=== PATIENT | female | born 1935 | race Caucasian/White ===

== ENCOUNTER 2017-01-23 09:55 | Emergency (ER) | payer MEDICARE, OTHER ==
[2017-01-23 09:59] VITALS: TEMP 97.8; BMI 28.0
--- NOTE | 2017-01-23 10:26 | PDOC ---
History of Present Illness - General History Source: Patient, Old Records Exam Limitations: No Limitations - History of Present Illness Initial Comments: 01/23/17 10:34 The patient is an 81 year old female with past medical history of hypertension, hyperlipidemia, diabetes, hypothyroidism, anemia, and asthma who presents to the ED with complaints of abdominal and and intermittent diarrhea for the past two weeks. She denies treating her symptoms with any medications. When the patient called her PCP today, she was advised to go to the emergency room. She denies any recent fevers, chills, nausea or vomiting. She denies melena or hematochezia. She denies any chest pain or shortness of breath. She denies any urinary symptoms. PCP: Guy Aguilar <Isa Mason - Last Filed: 01/23/17 14:19> <Luzmaria Beltran - Last Filed: 01/23/17 16:36> - General Chief Complaint: Pain Stated Complaint: ABD PAIN Time Seen by Provider: 01/23/17 10:10 Past History <Isa Mason - Last Filed: 01/23/17 14:19> - Past Medical History Anemia: Yes Asthma: Yes Cardiac Disorders: Yes Diabetes: Yes HTN: Yes Hypercholesterolemia: Yes Suicide Attempt (Hx): No Thyroid Disease: Yes (hypo) - Surgical History Abdominal Surgery: Yes (TUBAL LIGATION) Cholecystectomy: Yes - Psycho/Social/Smoking Cessation Hx Anxiety: No Suicidal Ideation: No Smoking Status: No Smoking History: Never smoked Have you smoked in the past 12 months: No Number of Cigarettes Smoked Daily: 0 Information on smoking cessation initiated: No Hx Alcohol Use: No Drug/Substance Use Hx: No Substance Use Type: None <Luzmaria Beltran - Last Filed: 01/23/17 16:36> - Past Medical History Allergies/Adverse Reactions: Allergies Allergy/AdvReac Type Severity Reaction Status Date / Time No Known Allergies Allergy Verified 01/23/17 09:56 Home Medications: Ambulatory Orders Albuterol Sulfate Inhaler - [Ventolin HFA Inhaler -] 2 inh PO Q4H PRN #1 inh Amlodipine Besylate [Norvasc -] 2.5 mg PO DAILY 10/24/14 Aspirin [ASA -] 81 mg PO DAILY 10/24/14 Atorvastatin Ca [Lipitor] 20 mg PO HS 10/24/14 Diltiazem HCl [Diltiazem 24Hr ER] 360 mg PO DAILY 10/24/14 Levothyroxine [Synthroid -] 100 mcg PO DAILY 10/24/14 Losartan Potassium 100 mg PO DAILY 10/24/14 Metformin HCl [Glucophage -] 1,000 mg PO BID 10/24/14 Montelukast Na [Singulair -] 10 mg PO HS 10/24/14 Sertraline HCl [Zoloft] 25 mg PO DAILY 10/24/14 Zolpidem Tartrate [Ambien] 10 mg PO HS 10/24/14 Levofloxacin [Levaquin] 750 mg PO DAILY #7 tab 01/23/17 Metronidazole [Flagyl -] 500 mg PO TID #21 tablet 01/23/17 Review of Systems - Review of Systems Able to Perform ROS?: Yes Comments:: 01/23/17 10:35 GENERAL/CONSTITUTIONAL: No fever or chills. No weakness. HEAD, EYES, EARS, NOSE AND THROAT: No change in vision. No ear pain or discharge. No sore throat. CARDIOVASCULAR: No chest pain or shortness of breath. RESPIRATORY: No cough, wheezing, or hemoptysis. GASTROINTESTINAL: Present: abdominal pain, diarrhea No nausea, vomiting, constipation. GENITOURINARY: No dysuria, frequency, or change in urination. MUSCULOSKELETAL: No joint or muscle swelling or pain. No neck or back pain. SKIN: No rash NEUROLOGIC: No headache, vertigo, loss of consciousness, or change in strength/ sensation. ENDOCRINE: No increased thirst. No abnormal weight change. HEMATOLOGIC/LYMPHATIC: No anemia, easy bleeding, or history of blood clots. ALLERGIC/IMMUNOLOGIC: No hives or skin allergy. All Other Systems: Reviewed and Negative <Isa Mason - Last Filed: 01/23/17 14:19> *Physical Exam - Vital Signs Last Vital Signs Temp Pulse Resp BP Pulse Ox 97.8 F 88 18 148/64 100 01/23/17 09:56 01/23/17 09:56 01/23/17 09:56 01/23/17 09:56 01/23/17 09:56 - Physical Exam Comments: 01/23/17 10:36 <Isa Mason - Last Filed: 01/23/17 14:19> - Vital Signs Last Vital Signs Temp Pulse Resp BP Pulse Ox 97.8 F 88 18 148/64 100 01/23/17 09:56 01/23/17 09:56 01/23/17 09:56 01/23/17 09:56 01/23/17 09:56 - Physical Exam Comments: GENERAL: Awake, alert, and fully oriented, in no acute distress HEAD: No signs of trauma EYES: PERRLA, EOMI, sclera anicteric, conjunctiva clear ENT: Auricles normal inspection, hearing grossly normal, nares patent, oropharynx clear without exudates. Moist mucosa NECK: Normal ROM, supple, no lymphadenopathy, JVD, or masses LUNGS: Breath sounds equal, clear to auscultation bilaterally. No wheezes, and no crackles HEART: Regular rate and rhythm, normal S1 and S2, no murmurs, rubs or gallops ABDOMEN: Soft, tender to BLQ with guarding, normoactive bowel sounds. No rebound. No masses EXTREMITIES: Normal range of motion, no edema. No clubbing or cyanosis. No cords, erythema, or tenderness NEUROLOGICAL: Cranial nerves II through XII grossly intact. Normal speech, normal gait SKIN: Warm, Dry, normal turgor, no rashes or lesions noted. <Luzmaria Beltran - Last Filed: 01/23/17 16:36> ED Treatment Course - LABORATORY CBC & Chemistry Diagram: 01/23/17 10:33 01/23/17 10:33 - RADIOLOGY Radiograph Interpretation: 01/23/17 14:[address] as reviewed by Dr. Junior reports bowel wall thickening demonstrating colitis. <Isa Mason - Last Filed: 01/23/17 14:19> - LABORATORY CBC & Chemistry Diagram: 01/23/17 10:33 01/23/17 10:33 <Luzmaria Beltran - Last Filed: 01/23/17 16:36> Medical Decision Making - Medical Decision Making Patient is well-appearing, tolerating PO. Stable for DC home with outpatient treatment for colitis. <Luzmaria Beltran - Last Filed: 01/23/17 16:36> *DC/Admit/Observation/Transfer - Attestations Scribe Attestion: 01/23/17 10:37 Documentation prepared by Isa Mason, acting as auditor medical claims for Luzmaria Beltran MD. <Isa Mason - Last Filed: 01/23/17 14:19> - Discharge Dispostion Admit: No <Luzmaria Beltran - Last Filed: 01/23/17 16:36> Diagnosis at time of Disposition: Colitis - Discharge Dispostion Disposition: HOME Condition at time of disposition: Stable - Prescriptions Prescriptions: Metronidazole [Flagyl -] 500 mg PO TID #21 tablet Levofloxacin [Levaquin] 750 mg PO DAILY #7 tab - Patient Instructions Printed Discharge Instructions: DI for Colitis Print Language: LIBYAN
[2017-01-23] MEDS ORDERED: SODIUM CHLORIDE 1,000 ML IV STA (10:33)
[2017-01-23 11:09] LABS: BASOPHIL 0.6 % (0-2.0); EOSINOPHIL 4.2 % (0-4.5); MCH 26.9 pg (25.7-33.7); MCHC 33.3 g/dl (32.0-36.0); MEAN CELL VOLUME 80.9 fl (80-96); MEAN PLT VOLUME 7.1 fl (7.5-11.1); NEUTROPHILS 64.4 % (42.8-82.8); PLATELET COUNT 298 K/MM3 (134-434); WHITE BLOOD COUNT 6.6 K/mm3 (4.0-10.0)
[2017-01-23 11:36] LABS: ALBUMIN 3.2 g/dl (3.4-5.0); BILIRUBIN,TOTAL 0.2 mg/dL (0.2-1.0); CALCIUM 9.1 mg/dL (8.5-10.1); COCKROFT - GAULT 46.75
[2017-01-23 12:09] LABS: URINE APPEARANCE CLEAR; URINE BILIRUBIN NEGATIVE (NEGATIVE); URINE BLOOD NEGATIVE (NEGATIVE); URINE COLOR STRAW; URINE GLUCOSE (UA) NEGATIVE (NEGATIVE); URINE KETONE NEGATIVE (NEGATIVE); URINE LEUK ESTERASE TRACE (NEGATIVE); URINE NITRITE NEGATIVE (NEGATIVE); URINE PROTEIN NEGATIVE (NEGATIVE); URINE UROBILINOGEN NEGATIVE E.U./dl (0.2-1.0)
[2017-01-23 12:15] LABS: URINE HYALINE CAST 1 /lpf; URINE MUCUS RARE; URINE RBC <1 /hpf (0-3); URINE WBC 1 /hpf (3-5)
[2017-01-23 15:32] VITALS: BP 141/68; PULSE 64
== END 2017-01-23 14:30 | disposition home or self-care (01) ==
LOC: JER 09:55
PROC: 3E0337Z Introduction of Electrolytic and Water Balance Substance into Peripheral Vein, Percutaneous Approach (ICD-10-PCS; principal; 2017-01-23)
DX: K52.9 Noninfective gastroenteritis and colitis, unspecified (principal); I10 Essential (primary) hypertension; E11.9 Type 2 diabetes mellitus without complications; Z79.84 Long term (current) use of oral hypoglycemic drugs; E03.9 Hypothyroidism, unspecified; D64.9 Anemia, unspecified; J45.909 Unspecified asthma, uncomplicated
CPT/HCPCS: 36415; 74177-TC; 80053; 81003; 81015; 83690; 85025; 96360; 99283-25

== ENCOUNTER 2017-03-03 11:51 | Emergency (ER) | payer MEDICARE, OTHER ==
[2017-03-03 12:03] VITALS: TEMP 98.7; BMI 28.1
--- NOTE | 2017-03-03 12:25 | PDOC ---
History of Present Illness - General History Source: Patient Exam Limitations: No Limitations - History of Present Illness Initial Comments: 03/03/17 13:08 The patient is an 81 year old female with a significant past medical history of hypertension, hyperlipidemia, diabetes, and hypothyroidism, presenting to the Emergency Department with dizziness for two weeks. The patient reports that she has felt dizzy for two weeks, for which her doctor prescribed Meclizine with little improvement. She admits that she has previously experienced similar dizziness and was diagnosed with vertigo. She admits to a headache, nausea, and unsteady gait secondary to dizziness. She admits that turning to her right side exacerbates the dizziness. The patient denies vomiting, or diarrhea. Patient denies fall, or loss of consciousness. Patient denies double vision, or visual changes. Patient denies chest pain, palpitations, and shortness of breath. PCP: Dr. Guy Aguilar Past Medical Hx: depression, anemia, asthma Surgical Hx: hysterectomy, cholecystectomy <Veronica Cheo - Last Filed: 03/03/17 14:43> <Reji Hays - Last Filed: 03/03/17 14:56> - General Chief Complaint: Lightheaded Stated Complaint: HEADACHE Time Seen by Provider: 03/03/17 12:21 Past History <Veronica Choe - Last Filed: 03/03/17 14:43> - Past Medical History Anemia: Yes Asthma: Yes Cardiac Disorders: Yes Diabetes: Yes HTN: Yes Hypercholesterolemia: Yes Suicide Attempt (Hx): No Thyroid Disease: Yes (hypo) - Surgical History Abdominal Surgery: Yes (TUBAL LIGATION) Cholecystectomy: Yes - Psycho/Social/Smoking Cessation Hx Anxiety: No Suicidal Ideation: No Smoking Status: No Smoking History: Former smoker Have you smoked in the past 12 months: No Number of Cigarettes Smoked Daily: 0 Information on smoking cessation initiated: No Hx Alcohol Use: No Drug/Substance Use Hx: No Substance Use Type: None <Reji Hays - Last Filed: 03/03/17 14:56> - Past Medical History Allergies/Adverse Reactions: Allergies Allergy/AdvReac Type Severity Reaction Status Date / Time No Known Allergies Allergy Verified 03/03/17 12:00 Home Medications: Ambulatory Orders Amlodipine Besylate [Norvasc -] 5 mg PO DAILY 03/03/17 Atorvastatin Ca [Lipitor] 20 mg PO HS 03/03/17 Diltiazem Cd [Cardizem Cd -] 360 mg PO DAILY 03/03/17 Ferrous Sulfate [Feosol] 325 mg PO DAILY 03/03/17 Fluticasone Propionate [Flovent Diskus] 110 mcg IH DAILY 03/03/17 Levothyroxine [Synthroid -] 100 mcg PO DAILY 03/03/17 Loperamide HCl [Loperamide] 2 mg PO DAILY PRN 03/03/17 Meclizine HCl [Antivert -] 12.5 mg PO TID 03/03/17 Metformin HCl [Metformin HCl ER] 1,000 mg PO BID 03/03/17 Montelukast Na [Singulair -] 10 mg PO HS 03/03/17 Omeprazole 20 mg PO DAILY 03/03/17 Sertraline HCl [Zoloft -] 25 mg PO DAILY 03/03/17 Zolpidem Tartrate [Ambien] 10 mg PO HS 03/03/17 Review of Systems - Review of Systems Able to Perform ROS?: Yes Comments:: 03/03/17 13:08 GENERAL/CONSTITUTIONAL: + dizziness. No fever or chills. No weakness. HEAD, EYES, EARS, NOSE AND THROAT: No change in vision. No ear pain or discharge. No sore throat. CARDIOVASCULAR: No chest pain or shortness of breath. RESPIRATORY: No cough, wheezing, or hemoptysis. GASTROINTESTINAL: + nausea. No vomiting, diarrhea or constipation. GENITOURINARY: No dysuria, frequency, or change in urination. MUSCULOSKELETAL: No joint or muscle swelling or pain. No neck or back pain. SKIN: No rash NEUROLOGIC: + headache, + vertigo. No loss of consciousness, or change in strength/sensation. ENDOCRINE: No increased thirst. No abnormal weight change. HEMATOLOGIC/LYMPHATIC: No anemia, easy bleeding, or history of blood clots. ALLERGIC/IMMUNOLOGIC: No hives or skin allergy. <Veronica Choe - Last Filed: 03/03/17 14:43> *Physical Exam - Vital Signs Last Vital Signs Temp Pulse Resp BP Pulse Ox 98.7 F 76 17 126/53 95 03/03/17 12:00 03/03/17 12:00 03/03/17 12:00 03/03/17 12:00 03/03/17 12:00 - Physical Exam Comments: 03/03/17 13:09 GENERAL: Awake, alert, and fully oriented, in no acute distress HEAD: No signs of trauma EYES: PERRLA, EOMI, sclera anicteric, conjunctiva clear ENT: Auricles normal inspection, hearing grossly normal, nares patent, oropharynx clear without exudates. Moist mucosa NECK: Normal ROM, supple, no lymphadenopathy, JVD, or masses LUNGS: Breath sounds equal, clear to auscultation bilaterally. No wheezes, and no crackles HEART: Regular rate and rhythm, normal S1 and S2, no murmurs, rubs or gallops ABDOMEN: Soft, nontender, normoactive bowel sounds. No guarding, no rebound. No masses EXTREMITIES: Normal range of motion, no edema. No clubbing or cyanosis. No cords, erythema, or tenderness NEUROLOGICAL: Positive manuel hallpike when turned to the right. Positive horizontal nystagmus. Cranial nerves II through XII grossly intact. Normal speech SKIN: Warm, Dry, normal turgor, no rashes or lesions noted. <Veronica Choe - Last Filed: 03/03/17 14:43> - Vital Signs Last Vital Signs Temp Pulse Resp BP Pulse Ox 98.7 F 76 17 126/53 95 03/03/17 12:00 03/03/17 12:00 03/03/17 12:00 03/03/17 12:00 03/03/17 12:00 <Reji Hays - Last Filed: 03/03/17 14:56> Heart Score/ECG Review #1 ECG reviewed & interpreted by me at: 13:22 (EKG reviewed by Dr. Hays IMPRESSION: Right bundle branch block, Normal sinus rhythm. No change from previous.) <Veronica Choe - Last Filed: 03/03/17 14:43> ED Treatment Course - LABORATORY CBC & Chemistry Diagram: 03/03/17 12:54 03/03/17 12:54 - RADIOLOGY Radiograph Interpretation: 03/03/17 13:37 Chest XRay As reviewed by Dr. Nomi Cruz IMPRESSION: No evidence of active pulmonary disease. 03/03/17 14:[address] As reviewed by Dr. Nomi Cruz IMPRESSION: No evidence of acute intracranial hemorrhage, edema, midline shift, mass effect, or skull fracture. No CT evidence of acute territorial infarction. <Veronica Choe - Last Filed: 03/03/17 14:43> - LABORATORY CBC & Chemistry Diagram: 03/03/17 12:54 03/03/17 12:54 <Reji Hays - Last Filed: 03/03/17 14:56> *DC/Admit/Observation/Transfer - Attestations Scribe Attestion: 03/03/17 13:11 Documentation prepared by Veronica Choe, acting as medical secretary for Reji Hays DO. <Veronica Choe - Last Filed: 03/03/17 14:43> - Discharge Dispostion Admit: No - Attestations Physician Attestion: 03/03/17 12:22 <Reji Hays - Last Filed: 03/03/17 14:56> Diagnosis at time of Disposition: Benign paroxysmal positional vertigo Qualifiers: Laterality: unspecified laterality Qualified Code(s): H81.10 - Benign paroxysmal vertigo, unspecified ear - Discharge Dispostion Disposition: HOME Condition at time of disposition: Good - Referrals Referrals: STAFF,NOT ON [Primary Care Provider] - - Patient Instructions Printed Discharge Instructions: DI for Vertigo, DI for Benign Paroxysmal Positional Vertigo Additional Instructions: See your doctor - his office will call you with the day and time. Continue the Antivert. Return to us if worse or new symptoms occur.
[2017-03-03 13:22] LABS: BASOPHIL 0.7 % (0-2.0); EOSINOPHIL 0.1 % (0-4.5); MCH 27.1 pg (25.7-33.7); MCHC 33.3 g/dl (32.0-36.0); MEAN CELL VOLUME 81.5 fl (80-96); MEAN PLT VOLUME 7.4 fl (7.5-11.1); NEUTROPHILS 71.9 % (42.8-82.8); PH,URINE 5.5 (5.0-8.0); PLATELET COUNT 242 K/MM3 (134-434); RDW 15.9 % (11.6-15.6); URINE APPEARANCE CLEAR; URINE BILIRUBIN 1+ (NEGATIVE); URINE BLOOD NEGATIVE (NEGATIVE); URINE COLOR LT. YELLOW; URINE GLUCOSE (UA) NEGATIVE (NEGATIVE); URINE KETONE TRACE (NEGATIVE); URINE NITRITE NEGATIVE (NEGATIVE); URINE UROBILINOGEN 0.2 E.U/dl E.U./dl (0.2-1.0); WHITE BLOOD COUNT 6.4 K/mm3 (4.0-10.0)
[2017-03-03 13:26] LABS: URINE LEUK ESTERASE 1+ (NEGATIVE); URINE PROTEIN 1+ (NEGATIVE)
[2017-03-03 13:49] LABS: ALBUMIN 3.7 g/dl (3.4-5.0); ANION GAP 11 (8-16); CALCIUM 8.8 mg/dL (8.5-10.1); CO2 26 mmol/L (21-32); GLUCOSE,RANDOM 101 mg/dL (74-106); SGPT/ALT 23 U/L (12-78)
[2017-03-03 13:52] LABS: INR 1.05 (0.82-1.09); PROTHROMBIN TIME (PATIENT) 11.6 SEC (9.98-11.88)
[2017-03-03 13:54] LABS: ALK PHOS 132 U/L (45-117); BILIRUBIN,TOTAL 0.5 mg/dL (0.2-1.0); CREATININE 1.1 mg/dL (0.55-1.02); SGOT/AST 34 U/L (15-37); TOT PROT 7.6 g/dl (6.4-8.2); TROPONIN I < 0.02 ng/ml (0.00-0.05)
[2017-03-03 14:07] LABS: THYROID STIMULATING HORMONE 2.14 uIU/ml (0.358-3.74)
[2017-03-03 14:15] LABS: URINE BACTERIA RARE /hpf (NONE SEEN); URINE MUCUS FEW; URINE RBC 5 /hpf (0-3); URINE WBC 12 /hpf (3-5)
[2017-03-03 15:22] VITALS: BP 122/63; PULSE 89
--- NOTE | 2017-03-03 15:51 | EKG ---
Test Reason : Blood Pressure : / mmHG Vent. Rate : 072 BPM Atrial Rate : 072 BPM P-R Int : 196 ms QRS Dur : 122 ms QT Int : 388 ms P-R-T Axes : -53 084 008 degrees QTc Int : 424 ms UNUSUAL P AXIS, POSSIBLE ECTOPIC ATRIAL RHYTHM RIGHT BUNDLE BRANCH BLOCK ABNORMAL ECG WHEN COMPARED WITH ECG OF 04-OCT-2015 13:12, ECTOPIC ATRIAL RHYTHM HAS REPLACED SINUS RHYTHM Confirmed by ELISEO MUSE, THUY ([id number]) on 03/03/2017 3:50:58 PM Referred By: Confirmed By:THUY GOMES MD
== END 2017-03-03 15:22 | disposition home or self-care (01) ==
LOC: JER 11:51
DX: H81.10 Benign paroxysmal vertigo, unspecified ear (principal); I10 Essential (primary) hypertension; E11.9 Type 2 diabetes mellitus without complications; E78.00 Pure hypercholesterolemia, unspecified; E03.9 Hypothyroidism, unspecified; Z79.84 Long term (current) use of oral hypoglycemic drugs
CPT/HCPCS: 36415; 70450-TC; 71010-TC; 80053; 81003; 81015; 82550; 83880; 84443; 84484; 85025; 85610; 87086; 93005; 93010; 99284-25

== ENCOUNTER 2017-05-15 12:49 | Emergency (ER) | payer MEDICARE, OTHER ==
[2017-05-15 12:57] VITALS: TEMP 98.3; BMI 27.8
[2017-05-15] MEDS ORDERED: PANTOPRAZOLE SODIUM 40 MG in SODIUM CHLORIDE 100 ML IVPB ONE (14:20)
[2017-05-15] MEDS ORDERED: SODIUM CHLORIDE 1,000 ML IV STA ×2 (14:20→15:48)
[2017-05-15] MEDS ORDERED: ONDANSETRON 4 MG/2 ML VIAL IVPUSH ONE (14:20)
[2017-05-15] MEDS ORDERED: PANTOPRAZOLE SODIUM 100 ML IVPB ONE (14:25)
[2017-05-15] MEDS ORDERED: ONDANSETRON 4 MG/2 ML VIAL ONE (14:25)
[2017-05-15 14:59] LABS: BASOPHIL 0.5 % (0-2.0); EOSINOPHIL 0.3 % (0-4.5); MCH 27.2 pg (25.7-33.7); MCHC 33.1 g/dl (32.0-36.0); MEAN PLT VOLUME 7.5 fl (7.5-11.1); NEUTROPHILS 88.3 % (42.8-82.8); PLATELET COUNT 325 K/MM3 (134-434); RDW 15.2 % (11.6-15.6); WHITE BLOOD COUNT 9.7 K/mm3 (4.0-10.0)
[2017-05-15 15:24] LABS: ALBUMIN 3.8 g/dl (3.4-5.0); ANION GAP 11 (8-16); BILIRUBIN,TOTAL 0.5 mg/dL (0.2-1.0); CALCIUM 9.6 mg/dL (8.5-10.1); CO2 27 mmol/L (21-32); CREATININE 0.9 mg/dL (0.55-1.02); GLUCOSE,RANDOM 135 mg/dL (74-106); MAGNESIUM 1.3 mg/dL (1.8-2.4); SGOT/AST 22 U/L (15-37); SGPT/ALT 25 U/L (12-78); TOT PROT 7.8 g/dl (6.4-8.2)
[2017-05-15 15:27] LABS: ALK PHOS 155 U/L (45-117); CPK 142 IU/L (26-192); TROPONIN I < 0.02 ng/ml (0.00-0.05)
[2017-05-15] MEDS ORDERED: MAGNESIUM SULF 50% (8.12 MEQ/2 ML-1 GM VIAL) IVPB ONE (15:38)
[2017-05-15 15:41] LABS: URINE APPEARANCE CLEAR; URINE BILIRUBIN NEGATIVE (NEGATIVE); URINE BLOOD NEGATIVE (NEGATIVE); URINE COLOR LTYELLOW; URINE GLUCOSE (UA) NEGATIVE (NEGATIVE); URINE KETONE NEGATIVE (NEGATIVE); URINE LEUK ESTERASE NEGATIVE (NEGATIVE); URINE NITRITE NEGATIVE (NEGATIVE); URINE UROBILINOGEN NEGATIVE mg/dL (0.2-1.0)
[2017-05-15 15:44] LABS: URINE PROTEIN 1+ (NEGATIVE)
--- NOTE | 2017-05-15 15:44 | PDOC ---
History of Present Illness - General Chief Complaint: Lightheaded Stated Complaint: NAUSEA/VOMITING/vertigo Time Seen by Provider: 05/15/17 13:07 History Source: Patient Exam Limitations: No Limitations - History of Present Illness Travel History: No Initial Comments: 05/15/17 15:41 81-year-old female presents with nausea and vomiting that began this morning after taking a meclizine pill upon awakening due to dizziness for her vertigo. Patient states has vomited approximately 4 times and now is having epigastric pain without fever, chills or headache. Patient does complain of generalized fatigue and mild dizziness. Patient denies headache, visual changes, or photosensitivity. Patient states no recent change in medications recent travel, recent illness. Timing/Duration: reports: intermittent Quality: reports: mild, cramping Abdominal Pain Onset Location: reports: epigastric Pain Radiation: reports: no radiation Activities at Onset: reports: none Aggravating Factors: improves with: None Alleviating Factors: improves with: None Past History - Travel Traveled outside of the country in the last 30 days: No Close contact w/someone who was outside of country & ill: No - Past Medical History Allergies/Adverse Reactions: Allergies Allergy/AdvReac Type Severity Reaction Status Date / Time No Known Allergies Allergy Verified 05/15/17 12:53 Home Medications: Ambulatory Orders Amlodipine Besylate [Norvasc -] 5 mg PO DAILY 03/03/17 Atorvastatin Ca [Lipitor] 20 mg PO HS 03/03/17 Diltiazem Cd [Cardizem Cd -] 360 mg PO DAILY 03/03/17 Ferrous Sulfate [Feosol] 325 mg PO DAILY 03/03/17 Fluticasone Propionate [Flovent Diskus] 110 mcg IH DAILY 03/03/17 Levothyroxine [Synthroid -] 100 mcg PO DAILY 03/03/17 Loperamide HCl [Loperamide] 2 mg PO DAILY PRN 03/03/17 Meclizine HCl [Antivert -] 12.5 mg PO TID 03/03/17 Metformin HCl [Metformin HCl ER] 1,000 mg PO BID 03/03/17 Montelukast Na [Singulair -] 10 mg PO HS 03/03/17 Omeprazole 20 mg PO DAILY 03/03/17 Sertraline HCl [Zoloft -] 25 mg PO DAILY 03/03/17 Zolpidem Tartrate [Ambien] 10 mg PO HS 03/03/17 Anemia: Yes Asthma: Yes Cardiac Disorders: Yes Diabetes: Yes HTN: Yes Hypercholesterolemia: Yes Suicide Attempt (Hx): No Thyroid Disease: Yes (hypo) Other medical history: vertigo - Surgical History Abdominal Surgery: Yes (TUBAL LIGATION) Cholecystectomy: Yes - Psycho/Social/Smoking Cessation Hx Anxiety: No Suicidal Ideation: No Smoking Status: No Smoking History: Never smoked Have you smoked in the past 12 months: No Number of Cigarettes Smoked Daily: 0 Information on smoking cessation initiated: No Hx Alcohol Use: No Drug/Substance Use Hx: No Substance Use Type: None Patient Lives Alone: No Review of Systems - Review of Systems Able to Perform ROS?: Yes Constitutional: Yes: Weakness HEENTM: No: Symptoms Reported Respiratory: No: Symptoms reported Cardiac (ROS): Yes: Lightheadedness ABD/GI: Yes: Nausea, Vomiting, Abdominal cramping : No: Symptoms Reported Musculoskeletal: No: Symptoms Reported Integumentary: No: Symptoms Reported Neurological: No: Symptoms reported Endocrine: No: Symptoms Reported *Physical Exam - Vital Signs Last Vital Signs Temp Pulse Resp BP Pulse Ox 98.3 F 104 H 18 178/69 100 05/15/17 12:54 05/15/17 12:54 05/15/17 12:54 05/15/17 12:54 05/15/17 12:54 - Physical Exam General Appearance: Yes: Nourished, Appropriately Dressed. No: Apparent Distress HEENT: positive: TMs Normal, Pharynx Normal. negative: Pale Conjunctivae Neck: positive: Supple Respiratory/Chest: positive: Lungs Clear, Normal Breath Sounds. negative: Respiratory Distress, Accessory Muscle Use Cardiovascular: positive: Regular Rhythm, Regular Rate. negative: Murmur Gastrointestinal/Abdominal: positive: Soft, Tenderness (epigastric) Musculoskeletal: negative: CVA Tenderness Extremity: positive: Normal Capillary Refill. negative: Pedal Edema Integumentary: positive: Normal Color, Warm, Moist Neurologic: positive: Normal Mood/Affect, Motor Strength 5/5 (ambulatory) Heart Score/ECG Review - History History: Slightly suspicious - Electrocardiogram EKG: Normal - Age Age: >/= 65 - Risk Factors Risk Factors Heart Score: Yes Hx Hypercholesterolemia, Yes Hx Hypertension, Yes Hx Diabetes Based on the list above the patient has:: >/=3 risk factors or Hx atherosclerotic disease - Troponin Troponin: </= normal limit - Score Heart Score - Total: 4 - ECG Intrepretation Rhythm: Regular Rhythm (normal sinus rhythm with first-degree AV block rate 72. No ST depression or elevation) ED Treatment Course - LABORATORY CBC & Chemistry Diagram: 05/15/17 14:40 05/15/17 17:20 - ADDITIONAL ORDERS Additional order review: Laboratory Results 05/15/17 14:40 Sodium 138 Potassium 5.6 H D Chloride 100 Carbon Dioxide 27 Anion Gap 11 BUN 19 H Creatinine 0.9 Creat Clearance w eGFR 59.94 Random Glucose 135 H D Calcium 9.6 Magnesium 1.3 L Total Bilirubin 0.5 AST 22 D ALT 25 Alkaline Phosphatase 155 H Creatine Kinase 142 Troponin I < 0.02 Total Protein 7.8 Albumin 3.8 Lipase 94 05/15/17 14:40 RBC 4.80 MCV 82.0 MCHC 33.1 RDW 15.2 MPV 7.5 Neutrophils % 88.3 H D Lymphocytes % 7.7 L D Monocytes % 3.2 L Eosinophils % 0.3 D Basophils % 0.5 - RADIOLOGY Radiology Studies Ordered: Category Date Time Status CHEST X-RAY PORTABLE* [RAD] Stat Radiology 05/15/17 14:20 Completed - Medications Given in the ED: ED Medications Discontinued Medications Generic Name Dose Route Start Last Admin Trade Name Freq PRN Reason Stop Dose Admin Pantoprazole Sodium 40 mg/ 100 mls @ 200 mls/hr 05/15/17 14:20 05/15/17 14:37 Sodium Chloride IVPB 05/15/17 14:49 200 mls/hr ONCE ONE Administration Sodium Chloride 1,000 mls @ 1,000 mls/hr 05/15/17 14:20 05/15/17 14:37 Normal Saline - IV 05/15/17 15:19 1,000 mls/hr ASDIR STA Administration Ondansetron HCl 4 mg 05/15/17 14:20 05/15/17 14:37 Zofran Injection IVPUSH 05/15/17 14:21 4 mg ONCE ONE Administration Medical Decision Making - Medical Decision Making 05/15/17 15:46 Patient with episodic nausea and vomiting associated with epigastric pain. Patient states symptoms began after taking this morning. Integument epigastric tenderness along with noted in the plastic bag. Patient concerning for gastritis versus cholecystitis versus UTI versus ACS patient ordered for labs including EKG chest x-ray, Zofran, IV fluids and Protonix. 05/15/17 16:52 Laboratory Tests 05/15/17 05/15/17 05/15/17 14:40 14:40 15:30 WBC 9.7 D Hgb 13.0 Hct 39.4 Plt Count 325 D Neutrophils % 88.3 H D Sodium 138 Potassium 5.6 H D Chloride 100 Carbon Dioxide 27 Anion Gap 11 BUN 19 H Random Glucose 135 H D Magnesium 1.3 L Alkaline Phosphatase 155 H Troponin I < 0.02 Urine Protein 1+ H Urine Urobilinogen Negative Urine WBC 1 05/15/17 17:05 Patient ordered for 2 g of magnesium. Will also ordered meclizine secondary to dizziness. Patient will have repeat BMP and magnesium Then will decide disposition. 05/15/17 18:29 Laboratory Tests 05/15/17 17:20 Sodium 137 Potassium 4.7 Magnesium 2.3 D Patient states feeling much better. Patient be recommended to increase her meclizine to 25 mg 3 times a day. *DC/Admit/Observation/Transfer Diagnosis at time of Disposition: Vertigo, Hypomagnesemia - Discharge Dispostion Disposition: HOME Condition at time of disposition: Improved - Referrals Referrals: STAFF,NOT ON [Primary Care Provider] - - Patient Instructions Printed Discharge Instructions: DI for Vertigo Additional Instructions: You may take 25 mg of meclizine 3 times a day as needed for dizziness. Please eat small frequent meals throughout the day drinking plenty of fluids. If symptoms return please go to the nearest emergency room . otherwise follow-up with your primary care physician and/or neurologist.
[2017-05-15 15:46] LABS: URINE MUCUS RARE; URINE RBC 1 /hpf (0-3); URINE WBC 1 /hpf (3-5)
[2017-05-15] MEDS ORDERED: MAGNESIUM SULF 50% (8.12 MEQ/2 ML-1 GM VIAL) ONE (15:50)
[2017-05-15] MEDS ORDERED: MECLIZINE HCL 25 MG TABLET (FP) PO ONE (17:03)
[2017-05-15] MEDS ORDERED: MECLIZINE HCL 25 MG TABLET (FP) ONE (17:20)
[2017-05-15 18:02] LABS: ANION GAP 5 (8-16); CALCIUM 8.7 mg/dL (8.5-10.1); CO2 28 mmol/L (21-32); CREATININE 0.7 mg/dL (0.55-1.02); GLUCOSE,RANDOM 113 mg/dL (74-106); MAGNESIUM 2.3 mg/dL (1.8-2.4)
[2017-05-15 19:19] VITALS: BP 150/72; PULSE 78
--- NOTE | 2017-05-16 13:57 | EKG ---
Test Reason : Blood Pressure : / mmHG Vent. Rate : 072 BPM Atrial Rate : 072 BPM P-R Int : 234 ms QRS Dur : 124 ms QT Int : 406 ms P-R-T Axes : 038 085 030 degrees QTc Int : 444 ms SINUS RHYTHM WITH 1ST DEGREE A-V BLOCK RIGHT BUNDLE BRANCH BLOCK ABNORMAL ECG WHEN COMPARED WITH ECG OF 03-MAR-2017 13:13, SINUS RHYTHM HAS REPLACED ECTOPIC ATRIAL RHYTHM Confirmed by CHRIS MUSE, ANGELITO ([id number]) on 05/16/2017 1:57:26 PM Referred By: Confirmed By:ANGELITO PEREZ MD
== END 2017-05-15 19:18 | disposition home or self-care (01) ==
LOC: JER 12:49
PROC: 3E033GC Introduction of Other Therapeutic Substance into Peripheral Vein, Percutaneous Approach (ICD-10-PCS; principal; 2017-05-15)
PROC: 3E033GC Introduction of Other Therapeutic Substance into Peripheral Vein, Percutaneous Approach (ICD-10-PCS; 2017-05-15)
DX: E83.42 Hypomagnesemia (principal); R42 Dizziness and giddiness; I10 Essential (primary) hypertension; E11.9 Type 2 diabetes mellitus without complications; Z79.84 Long term (current) use of oral hypoglycemic drugs; E78.00 Pure hypercholesterolemia, unspecified; J45.909 Unspecified asthma, uncomplicated; E03.9 Hypothyroidism, unspecified
CPT/HCPCS: 36415; 71010-TC; 80048; 80053; 81003; 81015; 83690; 83735; 84484; 85025; 93005; 93010; 96365; 96375; 99285-25

== ENCOUNTER 2017-09-15 09:42 | Emergency (ER) | payer MEDICARE, OTHER ==
[2017-09-15 09:55] VITALS: BP 146/65; PULSE 64; TEMP 97.7; BMI 28.7
--- NOTE | 2017-09-15 10:39 | PDOC ---
History of Present Illness - General Chief Complaint: Pain Stated Complaint: PAIN Time Seen by Provider: 09/15/17 10:22 History Source: Patient, Family Exam Limitations: No Limitations - History of Present Illness Initial Comments: 09/15/17 10:36 Son here With mother as patient with complaints of low back pain and radiating pain to left buttock and down left leg. Pain has been intermittent for some time however has become much worse over the past [address] aguilar, her PMD who called in a prescription for tramadol and Naprosyn 500 mg. Patient has not taken Naprosyn but has used tramadol with minimal resolved. Denies numbness or tingling to foot, denies any problems with bowel or bladder. Denies fever. Denies any recent heavy lifting or strenuous activity although suffers from arthritis. Has a handicap daughter that is full care that she his primary care provider for which includes heavy lifting Occurred: reports: other Severity: reports: mild, moderate Pain Location: reports: back, pelvis Modifying Factors: improves with: None Associated Symptoms (Fall): denies symptoms Past History - Travel Traveled outside of the country in the last 30 days: No Close contact w/someone who was outside of country & ill: No - Past Medical History Allergies/Adverse Reactions: Allergies Allergy/AdvReac Type Severity Reaction Status Date / Time No Known Allergies Allergy Verified 09/15/17 09:52 Home Medications: Ambulatory Orders Amlodipine Besylate [Norvasc -] 5 mg PO DAILY 03/03/17 Atorvastatin Ca [Lipitor] 20 mg PO HS 03/03/17 Diltiazem Cd [Cardizem Cd -] 360 mg PO DAILY 03/03/17 Ferrous Sulfate [Feosol] 325 mg PO DAILY 03/03/17 Fluticasone Propionate [Flovent Diskus] 110 mcg IH DAILY 03/03/17 Levothyroxine [Synthroid -] 100 mcg PO DAILY 03/03/17 Loperamide HCl [Loperamide] 2 mg PO DAILY PRN 03/03/17 Metformin HCl [Metformin HCl ER] 1,000 mg PO BID 03/03/17 Montelukast Na [Singulair -] 10 mg PO HS 03/03/17 Omeprazole 20 mg PO DAILY 03/03/17 Sertraline HCl [Zoloft -] 25 mg PO DAILY 07/06/17 Zolpidem Tartrate [Ambien] 10 mg PO HS 03/03/17 Meclizine HCl [Antivert -] 25 mg PO TID PRN #21 tablet 05/15/17 Cyclobenzaprine HCl [Flexeril 10 mg] 10 mg PO BID PRN #14 tablet 09/15/17 Anemia: Yes Asthma: Yes Cardiac Disorders: Yes COPD: No Diabetes: Yes HTN: Yes Hypercholesterolemia: Yes Thyroid Disease: Yes (hypo) - Surgical History Abdominal Surgery: Yes (TUBAL LIGATION) Cholecystectomy: Yes - Suicide/Smoking/Psychosocial Hx Smoking Status: No Smoking History: Former smoker Have you smoked in the past 12 months: No Number of Cigarettes Smoked Daily: 0 Information on smoking cessation initiated: No Hx Alcohol Use: No Drug/Substance Use Hx: No Substance Use Type: None Review of Systems - Review of Systems Able to Perform ROS?: Yes Is the patient limited Ecuadorean proficient: Yes Constitutional: Yes: Symptoms Reported, See HPI, Malaise. No: Chills, Fever HEENTM: Yes: See HPI. No: Symptoms Reported, Nose Congestion Respiratory: Yes: See HPI. No: Symptoms reported, Cough, Shortness of Breath Cardiac (ROS): Yes: See HPI. No: Symptoms Reported ABD/GI: Yes: See HPI. No: Symptoms Reported Musculoskeletal: Yes: Symptoms Reported, See HPI, Back Pain, Muscle Pain. No: Muscle Weakness Integumentary: Yes: See HPI. No: Symptoms Reported, Bruising Neurological: Yes: See HPI. No: Symptoms reported, Headache, Numbness, Paresthesia, Weakness All Other Systems: Reviewed and Negative *Physical Exam - Vital Signs Last Vital Signs Temp Pulse Resp BP Pulse Ox 97.7 F 64 16 146/65 98 09/15/17 09:52 09/15/17 09:52 09/15/17 09:52 09/15/17 09:52 09/15/17 09:52 - Physical Exam General Appearance: Yes: Nourished, Appropriately Dressed, Apparent Distress, Mild Distress HEENT: positive: GEM, Normal ENT Inspection, TMs Normal, Pharynx Normal Neck: positive: Supple. negative: Tender Respiratory/Chest: positive: Lungs Clear, Normal Breath Sounds Gastrointestinal/Abdominal: positive: Soft. negative: Tender Musculoskeletal: positive: Normal Inspection (with mildly limited range of motion secondary to low back pain. Has some tense tight musculature bilateral paravertebral spinous muscles on the lumbar area without true palpable spasm however point tenderness with reproduce pain to deep palpation. Hip has full range of motion with negative pain to pelvis. Is ambulatory with minimal unsteadiness or limp. Neurovascular intact to foot.) Extremity: positive: Normal Capillary Refill, Normal Inspection, Normal Range of Motion Integumentary: positive: Normal Color, Dry. negative: Rash Neurologic: positive: sink maker II-XII NML intact, Fully Oriented, Alert, Normal Mood/ Affect, Normal Response, Motor Strength 5/5 Progress Note - Progress Note Progress Note: Low back strain, no clinical evidence of any internal pathology . Will use NSAIDs and cyclobenzaprine to help resolve some mild spasm and encourage patient to avoid continued heavy lifting and consider help for his disabled daughter to avoid any further low back injuries. We'll refer to Koby O for further evaluation and treatment as necessary *DC/Admit/Observation/Transfer Diagnosis at time of Disposition: Low back strain Qualifiers: Encounter type: initial encounter Qualified Code(s): S39.012A - Strain of muscle, fascia and tendon of lower back, initial encounter - Discharge Dispostion Disposition: HOME Condition at time of disposition: Stable Admit: No - Prescriptions Prescriptions: Cyclobenzaprine HCl [Flexeril 10 mg] 10 mg PO BID PRN #14 tablet PRN Reason: spasm - Referrals Referrals: Guy Aguilar [Primary Care Provider] - - Patient Instructions Printed Discharge Instructions: DI for Low Back Pain Additional Instructions: Rest, no heavy lifting or exercise until pain is resolved Hot soaks to neck and low back as often as possible/hot showers or Jacuzzis No massage or therapy until spasm is gone Continue Naprosyn 500 mg tablet every 8 hours for the next 3 days then as needed for pain and swelling Cyclobenzaprine 1-10mg every 8 hours as needed for spasm- remembering will make very dizzy and sleepy so take with caution If not significant improvement within 24 hours with medication and rest regime, followup with private physician for change in medications and /or therapy. - Post Discharge Activity
== END 2017-09-15 11:00 | disposition home or self-care (01) ==
LOC: JERFT 09:42
DX: S39.012A Strain of muscle, fascia and tendon of lower back, initial encounter (principal); X58.XXXA Exposure to other specified factors, initial encounter; Y93.89 Activity, other specified; Y92.89 Other specified places as the place of occurrence of the external cause; Y99.8 Other external cause status; I10 Essential (primary) hypertension; E11.9 Type 2 diabetes mellitus without complications; E78.00 Pure hypercholesterolemia, unspecified; E03.9 Hypothyroidism, unspecified; Z87.891 Personal history of nicotine dependence; Z79.84 Long term (current) use of oral hypoglycemic drugs
CPT/HCPCS: 99281-25

== ENCOUNTER 2018-01-15 10:30 | Emergency (ER) | payer OTHER ==
[2018-01-15 11:08] VITALS: BP 143/62; PULSE 69; TEMP 97.7; BMI 29.4
[2018-01-15] MEDS ORDERED: LIDOCAINE 5% TOPICAL PATCH TP ONE (11:50)
[2018-01-15] MEDS ORDERED: KETOROLAC TROMETHAMINE 30 MG/1 ML VIAL IM ONE (11:50)
[2018-01-15] MEDS ORDERED: ONDANSETRON 4 MG TABLET PO ONE (11:54)
--- NOTE | 2018-01-15 11:54 | PDOC ---
History of Present Illness - General Chief Complaint: Back Pain Stated Complaint: BACK PAIN Time Seen by Provider: 01/15/18 11:30 History Source: Patient - History of Present Illness Occurred: reports: last week Pain Location: reports: back Past History - Past Medical History Allergies/Adverse Reactions: Allergies Allergy/AdvReac Type Severity Reaction Status Date / Time No Known Allergies Allergy Verified 01/15/18 10:56 Home Medications: Ambulatory Orders Amlodipine Besylate [Norvasc -] 5 mg PO DAILY 03/03/17 Atorvastatin Ca [Lipitor] 20 mg PO HS 03/03/17 Diltiazem Cd [Cardizem Cd -] 360 mg PO DAILY 03/03/17 Ferrous Sulfate [Feosol] 325 mg PO DAILY 03/03/17 Fluticasone Propionate [Flovent Diskus] 110 mcg IH DAILY 03/03/17 Levothyroxine [Synthroid -] 100 mcg PO DAILY 03/03/17 Loperamide HCl [Loperamide] 2 mg PO DAILY PRN 03/03/17 Metformin HCl [Metformin HCl ER] 1,000 mg PO BID 03/03/17 Montelukast Na [Singulair -] 10 mg PO HS 03/03/17 Omeprazole 20 mg PO DAILY 03/03/17 Sertraline HCl [Zoloft -] 25 mg PO DAILY 03/03/17 Zolpidem Tartrate [Ambien] 10 mg PO HS 03/03/17 Meclizine HCl [Antivert -] 25 mg PO TID PRN #21 tablet 05/15/17 Cyclobenzaprine HCl [Flexeril 10 mg] 10 mg PO BID PRN #14 tablet 09/15/17 Lidocaine 5% Patch [Lidoderm Patch -] 1 patch TP DAILY #7 patch 01/15/18 Anemia: Yes Asthma: Yes Cardiac Disorders: Yes COPD: No Diabetes: Yes HTN: Yes Hypercholesterolemia: Yes Thyroid Disease: Yes (hypo) - Surgical History Abdominal Surgery: Yes (TUBAL LIGATION) Cholecystectomy: Yes - Suicide/Smoking/Psychosocial Hx Smoking Status: No Smoking History: Never smoked Have you smoked in the past 12 months: No Number of Cigarettes Smoked Daily: 0 Information on smoking cessation initiated: No Hx Alcohol Use: No Drug/Substance Use Hx: No Substance Use Type: None Review of Systems - Review of Systems ABD/GI: Yes: Nausea, Vomiting. No: Abdominal cramping : Yes: Frequency. No: Burning, Dysuria, Discharge, Flank Pain, Hematuria Musculoskeletal: Yes: Back Pain. No: Neck Pain Neurological: No: Numbness, Tingling, Weakness *Physical Exam - Vital Signs Last Vital Signs Temp Pulse Resp BP Pulse Ox 97.7 F 69 18 143/62 99 01/15/18 10:51 01/15/18 10:51 01/15/18 10:51 01/15/18 10:51 01/15/18 10:51 - Physical Exam General Appearance: Yes: Appropriately Dressed, Mild Distress HEENT: positive: Normal Voice Neck: positive: Supple Respiratory/Chest: positive: Lungs Clear, Normal Breath Sounds. negative: Respiratory Distress Cardiovascular: positive: Regular Rate, S1, S2 Gastrointestinal/Abdominal: positive: Soft. negative: Tender Musculoskeletal: positive: Vertebral Tenderness (to b/l lower back). 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 Unable to describe pain , but states is constant, with an intensity of 8 out of 10. Pain worse with certain movements and when getting up from a sitting position. No lower extremity weakness, saddle anesthesia, bowel or bladder incontinence. Does report urinary frequency of unclear duration and states blood sugar "good" at home. No dysuria otherwise, hematuria, flank pain, f/c. Also reporting that she did not eat anything today and now feels nauseous. Requesting food in ED. No abdominal pain or change in bowel movements. See exam Acute on chronic back pain +DJD on XR 10/16 On meds at home w/ no improvement No red flags on exam, i.e cauda equina -XR r/o compression fx -pain control N/V 09/30 ?not eating this am per pt No abd pain -zofran -will give food and reassess 01/15/18 12:40 X-rays negative for acute finding, DJD redemonstrated. Patient reports pain improved with meds. Patient no longer nauseous and tolerating po in ER. UA unremarkable. Stable for discharge with pain control. Patient to follow up with PMD this week. Reasons to return to ED discussed with patient 01/15/18 12:41 *DC/Admit/Observation/Transfer Diagnosis at time of Disposition: Back pain Qualifiers: Back pain location: low back pain Chronicity: chronic Back pain laterality: unspecified Sciatica presence: without sciatica Qualified Code(s): M54.5 - Low back pain - Discharge Dispostion Disposition: HOME Condition at time of disposition: Improved - Prescriptions Prescriptions: Lidocaine 5% Patch [Lidoderm Patch -] 1 patch TP DAILY #7 patch - Referrals Referrals: Guy Aguilar [Primary Care Provider] - - Patient Instructions Printed Discharge Instructions: Low Back Pain Additional Instructions: Continue taking naproxen and uses Lidoderm patches as directed. If symptoms persist, please follow-up with your PMD. There was no evidence of compression fractures on your x-ray today. - Post Discharge Activity
[2018-01-15] MEDS ORDERED: LIDOCAINE 5% TOPICAL PATCH ONE (12:00)
[2018-01-15] MEDS ORDERED: KETOROLAC TROMETHAMINE 30 MG/1 ML VIAL ONE (12:00)
[2018-01-15] MEDS ORDERED: ONDANSETRON *ODT* 4 MG TABLET ONE (12:00)
[2018-01-15 12:52] LABS: URINE APPEARANCE CLEAR; URINE BILIRUBIN NEGATIVE (<2.0 mg/dL); URINE COLOR YELLOW; URINE GLUCOSE (UA) NEGATIVE (NEGATIVE); URINE KETONE NEGATIVE (NEGATIVE); URINE LEUK ESTERASE NEGATIVE (NEGATIVE); URINE NITRITE NEGATIVE (NEGATIVE)
[2018-01-15 12:53] LABS: URINE PROTEIN 2+ (NEGATIVE)
[2018-01-15 12:54] LABS: EPI CELLS RARE /HPF (FEW); URINE MUCUS RARE
[2018-01-15] MEDS ORDERED: LIDOCAINE PATCH REMOVAL MC SCH (22:00)
== END 2018-01-15 13:15 | disposition home or self-care (01) ==
LOC: JER 10:30 → JERFT 10:30
PROC: 3E0233Z Introduction of Anti-inflammatory into Muscle, Percutaneous Approach (ICD-10-PCS; principal; 2018-01-15)
DX: M54.5 Low back pain (principal); D64.9 Anemia, unspecified; J45.909 Unspecified asthma, uncomplicated; I10 Essential (primary) hypertension; E11.9 Type 2 diabetes mellitus without complications; Z79.84 Long term (current) use of oral hypoglycemic drugs; E78.00 Pure hypercholesterolemia, unspecified; E03.9 Hypothyroidism, unspecified
CPT/HCPCS: 72100-TC-FY; 81003; 81015; 96372; 99281-25

== ENCOUNTER 2019-05-28 09:48 | Inpatient (IN) | payer OTHER ==
--- NOTE | 2019-05-28 10:51 | PDOC ---
Attending Attestation - Resident Resident Name: Deep Paige - HPI HPI: 05/28/19 16:18 Pt presents to the ED complaining of the acute onset of RLQ pain without nausea , vomiting or fever. Denies urinary complaints. - Physicial Exam PE: 05/28/19 16:22 Agree with resident exam. Patient is alert and oriented and in no acute distress. Abdomen is soft, non distended, with diffuse R sided tenderness without guarding or rebound. - Medical Decision Making 05/28/19 16:25 Pt presents to the ED complaining of RLQ abdominal pain. Differential includes appendicitis, diverticulitis, abscess. Will check labs and CT and admit to medicine.
[2019-05-28] MEDS ORDERED: SODIUM CHLORIDE 0.9% 500 ML INFUS.BAG IV ONE (11:12)
[2019-05-28] MEDS ORDERED: ACETAMINOPHEN 1000 MG/100 ML VIAL (NON FORMULARY) IVPB ONE (11:12)
--- NOTE | 2019-05-28 11:16 | PDOC ---
History of Present Illness - General Chief Complaint: Pain Stated Complaint: ABD PAIN Time Seen by Provider: 05/28/19 10:48 History Source: Patient, Family Exam Limitations: Language Barrier (maori) - History of Present Illness Initial Comments: 05/28/19 11:16 Luh Nava is a 83yF w PMHx DM, HTN, HLD, hypothyroidism presenting with AB pain and swelling. Progressively worsening epigastric and RLQ pain, and AB distension for past week. Vomited once this morning. Took tylenol without relief. Denies alcohol, smoking. Denies fever, cough, nausea/vomiting, SOB, chest pain, urinary, diarrhea/constipation. Past History - Past Medical History Allergies/Adverse Reactions: Allergies Allergy/AdvReac Type Severity Reaction Status Date / Time No Known Allergies Allergy Verified 05/28/19 10:12 Home Medications: Ambulatory Orders Amlodipine Besylate [Norvasc -] 5 mg PO DAILY 03/03/17 Atorvastatin Ca [Lipitor] 20 mg PO HS 03/03/17 Diltiazem Cd [Cardizem Cd -] 360 mg PO DAILY 03/03/17 Ferrous Sulfate [Feosol] 325 mg PO DAILY 03/03/17 Fluticasone Propionate [Flovent Diskus] 110 mcg IH DAILY 03/03/17 Levothyroxine [Synthroid -] 100 mcg PO DAILY 03/03/17 Loperamide HCl [Loperamide] 2 mg PO DAILY PRN 03/03/17 Montelukast Na [Singulair -] 10 mg PO HS 03/03/17 Omeprazole 20 mg PO DAILY 03/03/17 Sertraline HCl [Zoloft -] 25 mg PO DAILY 03/03/17 Zolpidem Tartrate [Ambien] 10 mg PO HS 03/03/17 metFORMIN HCL [Metformin HCl ER] 1,000 mg PO BID 03/03/17 Meclizine HCl [Antivert -] 25 mg PO TID PRN #21 tablet 05/15/17 Cyclobenzaprine HCl [Flexeril 10 mg] 10 mg PO BID PRN #14 tablet 09/15/17 Lidocaine 5% Patch [Lidoderm Patch -] 1 patch TP DAILY #7 patch 01/15/18 Anemia: Yes Asthma: Yes Cardiac Disorders: Yes COPD: No Diabetes: Yes HTN: Yes Hypercholesterolemia: Yes Thyroid Disease: Yes (hypo) - Surgical History Abdominal Surgery: Yes (TUBAL LIGATION) Cholecystectomy: Yes - Psycho Social/Smoking Cessation Hx Smoking Status: No Smoking History: Former smoker Have you smoked in the past 12 months: No Number of Cigarettes Smoked Daily: 0 Information on smoking cessation initiated: No Hx Alcohol Use: No Drug/Substance Use Hx: No Substance Use Type: None Review of Systems - Review of Systems Constitutional: No: Chills, Fever HEENTM: No: Eye Pain, Nose Pain, Throat Pain, Mouth Pain Respiratory: No: Cough, Shortness of Breath Cardiac (ROS): No: Chest Pain, Palpitations, Syncope ABD/GI: Yes: Abdominal Distended. No: Constipated, Diarrhea, Nausea, Vomiting : No: Burning, Dysuria, Discharge, Frequency, Flank Pain, Hematuria Musculoskeletal: No: Back Pain, Joint Pain, Joint Swelling, Muscle Pain Integumentary: No: Bruising, Dryness, Erythema Neurological: No: Headache, Seizure, Tingling, Tremors Psychiatric: No: Anxiety, Depression, Stressors Endocrine: No: Excessive Sweating, Flushing, Intolerance to Cold, Intolerance to Heat Hematologic/Lymphatic: No: Anemia, Blood Clots *Physical Exam - Vital Signs Last Vital Signs Temp Pulse Resp BP Pulse Ox 97.4 F L 88 18 158/68 98 05/28/19 09:50 05/28/19 09:50 05/28/19 09:50 05/28/19 09:50 05/28/19 09:50 - Physical Exam General Appearance: Yes: Nourished, Appropriately Dressed, Mild Distress HEENT: positive: EOMI, GEM, Normal Voice, Hearing Grossly Normal. negative: Scleral Icterus (R), Scleral Icterus (L), Nasal Congestion, Rhinorrhea Respiratory/Chest: positive: Lungs Clear, Normal Breath Sounds. negative: Chest Tender, Respiratory Distress, Crackles, Rales, Rhonchi, Stridor, Wheezing Cardiovascular: positive: Regular Rhythm, Regular Rate, S1, S2, Systolic Murmur. negative: Edema Gastrointestinal/Abdominal: positive: Normal Bowel Sounds, Tender (mild epigastric, moderate RLQ), Distended. negative: Organomegaly, Pulsatile Mass, Guarding, Rebound, Hernia, Mass Musculoskeletal: negative: CVA Tenderness (R), CVA Tenderness (L) Extremity: positive: Delayed Capillary Refill (3s). negative: Swelling (no BLE edema) Integumentary: positive: Normal Color. negative: Rash Neurologic: positive: Fully Oriented, Alert, Normal Mood/Affect, Normal Response , Responsive. negative: Numbness, Confused, Disoriented ED Treatment Course - LABORATORY CBC & Chemistry Diagram: 05/28/19 11:30 05/28/19 11:30 Medical Decision Making - Medical Decision Making 05/28/19 11:14 CBC CMP trop BNP lactate UA Ucx CXR EKG 0.5L NS, tylenol for pain CT AB shows acute appendicitis with developing abscess - given zosyn Negative fluid on eFAST US EKG shows NSR w 1st degree AV block, RBBB, HR 80, QTc 454, no ST changes WBC 11.9, Hgb 10.4, BNP 288, negative trop, no infection/blood on UA Luh Nava is a 83yF w PMHx DM, HTN, HLD, thyroid issue presenting with 1 week of RLQ pain and swelling d/t acute appendicitis with developing abscess seen on CT AB (also elevated WBC 11.9, RLQ pain). Given 0.5L NS, tylenol for pain, zosyn for appendicitis. Not ACS w NSR EKG and neg troponin. No UTI or kidney stone. Updated Dr Aguilar PCP w hospital course Consulted [facility] Dr Aguila - advised since appendicitis already ruptured, it will not be surgically managed. Instead it will be drained by IR and medically managed inpatient. Aguila will place consult note and follow. Attempted to contact Dr Caldwell IR several times for drainage of appendicitis w developing abscess. No response. Place consult Admitted to Dr Chaka zaragoza for appendicitis w developing abscess Discharge - Discharge Information Problems reviewed: Yes Clinical Impression/Diagnosis: Appendicitis with abscess Condition: Stable - Follow up/Referral - Patient Discharge Instructions - Post Discharge Activity
[2019-05-28] MEDS ORDERED: ACETAMINOPHEN INJECTION 100 ML IVPB ONE (11:33)
[2019-05-28 12:22] LABS: BASO % 0.5 % (0-2.0); EOS % 0.2 % (0-4.5); HEMATOCRIT 32.5 % (32.4-45.2); HEMOGLOBIN 10.4 GM/dL (10.7-15.3); LYMPH % 12.1 % (8-40); MEAN CELL VOLUME 78.1 fl (80-96); MEAN PLT VOLUME 7.9 fl (7.5-11.1); MONO % 6.5 % (3.8-10.2); NEUT % 80.7 % (42.8-82.8); PLATELET COUNT 380 K/MM3 (134-434); RBC 4.16 M/mm3 (3.60-5.2); RDW 15.9 % (11.6-15.6); WHITE BLOOD COUNT 11.9 K/mm3 (4.0-10.0)
[2019-05-28 12:58] LABS: ALBUMIN 3.3 g/dl (3.4-5.0); BILIRUBIN,TOTAL 0.5 mg/dL (0.2-1); BLOOD UREA NITROGEN 12.8 mg/dL (7-18); CALCIUM 9.1 mg/dL (8.5-10.1); CREATININE 0.9 mg/dL (0.55-1.3); N-TERMINAL BNP 288.6 pg/ml (5-450); POTASSIUM 4.3 mmol/L (3.5-5.1); TOT PROT 7.5 g/dl (6.4-8.2)
[2019-05-28 12:59] LABS: EPI CELLS 7.2 /HPF (0-5/HPF); HYALINE CASTS 2 /lpf (0-8); PH,URINE 6.5 (5.0-8.0); URINE APPEARANCE CLEAR; URINE BACTERIA 95.7 /hpf (NEGATIVE); URINE BILIRUBIN NEGATIVE (NEGATIVE); URINE COLOR YELLOW; URINE GLUCOSE (UA) NEGATIVE (NEGATIVE); URINE KETONE NEGATIVE (NEGATIVE); URINE LEUK ESTERASE TRACE (NEGATIVE); URINE NITRITE NEGATIVE (NEGATIVE); URINE PROTEIN 2+ (NEGATIVE); URINE RBC 2 /hpf (0-4); URINE WBC 9 /hpf (0-5)
[2019-05-28] MEDS ORDERED: PIPERACILLIN/TAZOB 4.5 GM 4.5 GM in DEXTROSE 5%-WATER 100 ML IVPB ONE (14:57)
[2019-05-28] MEDS ORDERED: PIPERACILLIN/TAZOB 4.5 GM 4.5 GM/100 ML BAG IVPB ONE (16:01)
--- NOTE | 2019-05-28 17:55 | HP ---
Admitting History and Physical - Primary Care Physician PCP: rTudy Null - Admission History of Present Illness: Luh Nava is a 83yF w PMHx DM, HTN, HLD, hypothyroidism presenting with AB pain and swelling. Progressively worsening epigastric and LLQ pain, and AB distension for past week. Vomited once this morning. Took tylenol without relief. Denies alcohol, smoking. Denies fever, cough, nausea/vomiting, SOB, chest pain, urinary, diarrhea/constipation. 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 Cardiovascular: Yes: HTN, Hyperlipdemia Pulmonary: Yes: Asthma Heme/Onc: Yes: Anemia Endocrine: Yes: Diabetes Mellitus, Hypothyroidism - Past Surgical History Past Surgical History: Yes: Tubal Ligation - Smoking History Smoking history: Former smoker Have you smoked in the past 12 months: No Aproximately how many cigarettes per day: 0 - Alcohol/Substance Use Hx Alcohol Use: No - Social History ADL: Independent History of Recent Travel: No Home Medications - Allergies Allergies/Adverse Reactions: Allergies Allergy/AdvReac Type Severity Reaction Status Date / Time No Known Allergies Allergy Verified 05/28/19 10:12 - Home Medications Home Medications: Ambulatory Orders Atorvastatin Ca [Lipitor] 20 mg PO HS 03/03/17 Diltiazem Cd [Cardizem Cd -] 360 mg PO DAILY 03/03/17 Levothyroxine [Synthroid -] 100 mcg PO DAILY 03/03/17 Montelukast Na [Singulair -] 10 mg PO HS 03/03/17 Omeprazole 20 mg PO DAILY 03/03/17 Sertraline HCl [Zoloft -] 25 mg PO DAILY 03/03/17 metFORMIN HCL [Metformin HCl ER] 1,000 mg PO BID 03/03/17 Meclizine HCl [Antivert -] 25 mg PO TID PRN #21 tablet 05/15/17 Aspirin [Ecotrin] 81 mg PO DAILY 05/29/19 Eszopiclone [Lunesta] 3 mg PO HS 05/29/19 Fluticasone Propionate [Flovent Hfa] 110 mcg IH DAILY 05/29/19 Physical Examination Vital Signs: Vital Signs Temperature 97.6 F 05/28/19 17:36 Pulse Rate 104 H 05/28/19 17:36 Respiratory Rate 17 05/28/19 17:36 Blood Pressure 139/70 05/28/19 17:36 O2 Sat by Pulse Oximetry (%) 98 05/28/19 17:36 Constitutional: Yes: No Distress HENT: Yes: Atraumatic Neck: Yes: Supple Cardiovascular: Yes: Regular Rate and Rhythm Respiratory: Yes: CTA Bilaterally Gastrointestinal: Yes: Normal Bowel Sounds, Tenderness (rlq) Extremities: Yes: WNL Edema: No Peripheral Pulses WNL: Yes Neurological: Yes: Alert, Oriented Labs: CBC, BMP 05/28/19 11:30 05/28/19 11:30 Problem List - Problems (1) Appendicitis with abscess Assessment/Plan: npo ivf iv abx surgery and id consult Code(s): K35.33 - ACUTE APPENDICITIS WITH PERF AND LOC PERITONITIS, WITH ABSCS (2) Hyperlipidemia Code(s): E78.5 - HYPERLIPIDEMIA, UNSPECIFIED (3) Hypertension Code(s): I10 - ESSENTIAL (PRIMARY) HYPERTENSION Qualifiers: Hypertension type: essential hypertension Qualified Code(s): I10 - Essential (primary) hypertension (4) Hypothyroidism Assessment/Plan: on meds Code(s): E03.9 - HYPOTHYROIDISM, UNSPECIFIED (5) Type 2 diabetes mellitus Assessment/Plan: monitor bs Code(s): E11.9 - TYPE 2 DIABETES MELLITUS WITHOUT COMPLICATIONS Assessment/Plan Laboratory Tests 05/28/19 05/28/19 05/28/19 11:30 11:30 11:30 WBC 11.9 H RBC 4.16 Hgb 10.4 L Hct 32.5 D MCV 78.1 L MCH 25.0 L MCHC 32.0 RDW 15.9 H Plt Count 380 MPV 7.9 Absolute Neuts (auto) 9.6 H Neutrophils % 80.7 Lymphocytes % 12.1 D Monocytes % 6.5 D Eosinophils % 0.2 Basophils % 0.5 Nucleated RBC % 0 Sodium 140 Potassium 4.3 Chloride 103 Carbon Dioxide 28 Anion Gap 9 BUN 12.8 Creatinine 0.9 Est GFR (CKD-EPI)AfAm 68.05 Est GFR (CKD-EPI)NonAf 58.71 Random Glucose 123 H Lactic Acid Calcium 9.1 Total Bilirubin 0.5 AST 18 ALT 20 Alkaline Phosphatase 140 H Creatine Kinase 81 Troponin I < 0.02 B-Natriuretic Peptide 288.6 Total Protein 7.5 Albumin 3.3 L Urine Color Urine Appearance Urine pH Ur Specific [place] Urine Protein Urine Glucose (UA) Urine Ketones Urine Blood Urine Nitrite Urine Bilirubin Urine Urobilinogen Ur Leukocyte Esterase Urine WBC (Auto) Urine RBC (Auto) Urine Casts (Auto) U Epithel Cells (Auto) Urine Bacteria (Auto) 05/28/19 05/28/19 11:30 11:53 WBC RBC Hgb Hct MCV MCH MCHC RDW Plt Count MPV Absolute Neuts (auto) Neutrophils % Lymphocytes % Monocytes % Eosinophils % Basophils % Nucleated RBC % Sodium Potassium Chloride Carbon Dioxide Anion Gap BUN Creatinine Est GFR (CKD-EPI)AfAm Est GFR (CKD-EPI)NonAf Random Glucose Lactic Acid 1.2 Calcium Total Bilirubin AST ALT Alkaline Phosphatase Creatine Kinase Troponin I B-Natriuretic Peptide Total Protein Albumin Urine Color Yellow Urine Appearance Clear Urine pH 6.5 Ur Specific [place] 1.019 Urine Protein 2+ H Urine Glucose (UA) Negative Urine Ketones Negative Urine Blood Negative Urine Nitrite Negative Urine Bilirubin Negative Urine Urobilinogen 1.0 Ur Leukocyte Esterase Trace Urine WBC (Auto) 9 Urine RBC (Auto) 2 Urine Casts (Auto) 2 U Epithel Cells (Auto) 7.2 Urine Bacteria (Auto) 95.7
[2019-05-28] MEDS: SODIUM CHLORIDE 1,000 ML IV SCH (18:07)
--- NOTE | 2019-05-28 20:31 | CONSULT ---
Consult Consult Specialty:: General Surgery Reason for Consultation:: Apperndicistis with Abscess - History of Present Illness Chief Complaint: Abdominal pain History of Present Illness: 83 yo female PMH DM, HTN, HLD, hypothyroidism presenting with AB pain and swelling. Progressively worsening epigastric and LLQ pain, and AB distension for past week. Vomited once this morning. Took tylenol without relief. Denies alcohol, smoking. Denies fever, cough, nausea/vomiting, SOB, chest pain, urinary , diarrhea/constipation. CT scan reveal an abscess adjacent to an inflamed appendix in the right lower quadrant. We were called to assess. 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 Cardio/Vascular: Yes: HTN, Hyperlipdemia Pulmonary: Yes: Asthma Endocrine: Yes: Diabetes Mellitus, Hypothyroidism - Past Surgical History Past Surgical History: Yes: Tubal Ligation - Alcohol/Substance Use Hx Alcohol Use: No - Smoking History Smoking history: Former smoker Have you smoked in the past 12 months: No Aproximately how many cigarettes per day: 0 - Social History ADL: Independent History of Recent Travel: No Home Medications - Allergies Allergies/Adverse Reactions: Allergies Allergy/AdvReac Type Severity Reaction Status Date / Time No Known Allergies Allergy Verified 05/28/19 10:12 - Home Medications Home Medications: Ambulatory Orders Amlodipine Besylate [Norvasc -] 5 mg PO DAILY 03/03/17 Atorvastatin Ca [Lipitor] 20 mg PO HS 03/03/17 Diltiazem Cd [Cardizem Cd -] 360 mg PO DAILY 03/03/17 Ferrous Sulfate [Feosol] 325 mg PO DAILY 03/03/17 Fluticasone Propionate [Flovent Diskus] 110 mcg IH DAILY 03/03/17 Levothyroxine [Synthroid -] 100 mcg PO DAILY 03/03/17 Loperamide HCl [Loperamide] 2 mg PO DAILY PRN 03/03/17 Montelukast Na [Singulair -] 10 mg PO HS 03/03/17 Omeprazole 20 mg PO DAILY 03/03/17 Sertraline HCl [Zoloft -] 25 mg PO DAILY 03/03/17 Zolpidem Tartrate [Ambien] 10 mg PO HS 03/03/17 metFORMIN HCL [Metformin HCl ER] 1,000 mg PO BID 03/03/17 Meclizine HCl [Antivert -] 25 mg PO TID PRN #21 tablet 05/15/17 Cyclobenzaprine HCl [Flexeril 10 mg] 10 mg PO BID PRN #14 tablet 09/15/17 Lidocaine 5% Patch [Lidoderm Patch -] 1 patch TP DAILY #7 patch 01/15/18 Review of Systems - Review of Systems Constitutional: reports: Fever, Weakness. denies: Chills Eyes: denies: Blind Spots, Recent Change in Vision HENT: denies: Difficult Swallowing, Throat Pain Neck: denies: Decreased ROM, Tenderness Cardiovascular: denies: Chest Pain, Palpitations Respiratory: denies: Cough, SOB Gastrointestinal: reports: Abdominal Pain, Constipation. denies: Bloating, Melena, Nausea Genitourinary: denies: Burning, Discharge, Dysuria Breasts: reports: No Symptoms Reported. denies: Pain Musculoskeletal: denies: Joint Swelling, Muscle Pain Integumentary: denies: Lesions, Lump, Pallor Neurological: denies: Seizure, Syncope Endocrine: denies: Unexplained Weight Gain, Unexplained Weight Loss Hematology/Lymphatic: denies: Easily Bruised, Excessive Bleeding Psychiatric: denies: Anxiety, Depression Physical Exam Vital Signs: Vital Signs Temperature 97.6 F 05/28/19 17:36 Pulse Rate 104 H 05/28/19 17:36 Respiratory Rate 17 05/28/19 17:36 Blood Pressure 139/70 05/28/19 17:36 O2 Sat by Pulse Oximetry (%) 98 05/28/19 17:36 Constitutional: Yes: No Distress, Calm, Obese Eyes: Yes: Conjunctiva Clear, EOM Intact HENT: Yes: Atraumatic, Normocephalic Neck: Yes: Supple, Trachea Midline Cardiovascular: Yes: Regular Rate and Rhythm, S1, S2 Respiratory: Yes: Regular, CTA Bilaterally Gastrointestinal: Yes: Normal Bowel Sounds, Soft, Abdomen, Obese, Tenderness, Tenderness, Rebound (RLQ). No: Tenderness, Epigastrium ...Rectal Exam: Yes: Sphincter Tone Normal. No: Inflammation, Mass Renal/: No: CVA Tenderness - Left, CVA Tenderness - Right Musculoskeletal: No: Muscle Pain, Muscle Weakness Extremities: No: Cool, Cyanosis Edema: Yes Peripheral Pulses WNL: Yes Integumentary: No: Erythema, Incision, Jaundice Neurological: Yes: Alert, Confusion. No: Oriented Psychiatric: Yes: Alert. No: Oriented Labs: CBC, BMP 05/28/19 11:30 05/28/19 11:30 Imaging - Results Chest X-ray: Report Reviewed, Image Reviewed Cat Scan: Report Reviewed, Image Reviewed Problem List - Problems (1) Appendicitis with abscess Assessment/Plan: Discussed with Dr. Rowe of IR draining the abscess for sourced control, he feels that the collection is more phlegmon than abscess and can not be successfully drained. he feels that we should re-image the area after several days of non-operative medical management. NPO and IVF hyderation advance diets as abdominal pain improves to clears/ low residue diet Adequate analgesia ID consult for antibiotics Serial abdominal exams Repeat CT scan with IV and PO contrast 06/02 will follow Thank you for the opportunity to participate in the care of this patient. Problems reviewed: Yes Code(s): K35.33 - ACUTE APPENDICITIS WITH PERF AND LOC PERITONITIS, WITH ABSCS (2) Abdominal pain, RLQ Problems reviewed: Yes Code(s): R10.31 - RIGHT LOWER QUADRANT PAIN (3) Asthma Problems reviewed: Yes Code(s): J45.909 - UNSPECIFIED ASTHMA, UNCOMPLICATED Qualifiers: Asthma severity: moderate Asthma complication type: uncomplicated Qualified Code(s): J45.20 - Mild intermittent asthma, uncomplicated (4) Hyperlipidemia Problems reviewed: Yes Code(s): E78.5 - HYPERLIPIDEMIA, UNSPECIFIED (5) Hypertension Problems reviewed: Yes Code(s): I10 - ESSENTIAL (PRIMARY) HYPERTENSION Qualifiers: Hypertension type: essential hypertension Qualified Code(s): I10 - Essential (primary) hypertension (6) Hypothyroidism Problems reviewed: Yes Code(s): E03.9 - HYPOTHYROIDISM, UNSPECIFIED
[2019-05-28 20:35] VITALS: BMI 26.2
[2019-05-28] MEDS: HEPARIN NA (PORCINE) 5,000 UNITS/ML 1ML VIAL SQ SCH (23:33)
[2019-05-29] MEDS: SODIUM CHLORIDE 1,000 ML IV SCH ×2 (06:51→21:58)
--- NOTE | 2019-05-29 08:36 | CONSULT ---
Consultation: REQUESTING PROVIDER: ED CONSULT REQUEST: We have been asked to medically evaluate this patient for Appendicitis w/ developing abscess). HISTORY OF PRESENT ILLNESS: Pt is an 83y/o F w PMHx DM, HTN, HLD, hypothyroidism who presented to [facility] due to diffuse abdominal pain. For past 1 week, pt has been experiencing worsening RLQ pain and distension. Pt vomited once yesterday am. OTC medications provided no relief. Pt endorses decreased appetite as well during this time period. Denies fevers. ICU team consulted for possible ruptured appendix. REVIEW OF SYSTEMS: CONSTITUTIONAL: Absent: fever, chills, diaphoresis, generalized weakness, malaise, loss of appetite, weight change HEENT: Absent: rhinorrhea, nasal congestion, throat pain, throat swelling, difficulty swallowing, mouth swelling, ear pain, eye pain, visual changes CARDIOVASCULAR: Absent: chest pain, syncope, palpitations, irregular heart rate, lightheadedness , peripheral edema RESPIRATORY: Absent: cough, shortness of breath, dyspnea with exertion, orthopnea, wheezing, stridor, hemoptysis GASTROINTESTINAL: PRESENT abdominal pain, abdominal distension, nausea, vomiting GENITOURINARY: Absent: dysuria, frequency, urgency, hesitancy, hematuria, flank pain, genital pain MUSCULOSKELETAL: Absent: myalgia, arthralgia, joint swelling, back pain, neck pain SKIN: Absent: rash, itching, pallor HEMATOLOGIC/IMMUNOLOGIC: Absent: easy bleeding, easy bruising, lymphadenopathy, frequent infections ENDOCRINE: Absent: unexplained weight gain, unexplained weight loss, heat intolerance, cold intolerance NEUROLOGIC: Absent: headache, focal weakness or paresthesias, dizziness, unsteady gait, seizure, mental status changes, bladder or bowel incontinence PSYCHIATRIC: Absent: anxiety, depression, suicidal or homicidal ideation, hallucinations. PHYSICAL EXAMINATION Vital Signs - 24 hr 05/28/19 05/28/19 05/28/19 09:50 17:36 19:55 Temperature 97.4 F L 97.6 F 99.0 F Pulse Rate 88 90 Pulse Rate [ 104 H Right] Respiratory 18 17 18 Rate Blood Pressure 158/68 154/70 Blood Pressure 139/70 [Right Arm] O2 Sat by Pulse 98 98 Oximetry (%) 05/29/19 05/29/19 02:00 07:32 Temperature 99.1 F 98.7 F Pulse Rate 87 100 H Pulse Rate [ Right] Respiratory 18 18 Rate Blood Pressure 156/87 155/89 Blood Pressure [Right Arm] O2 Sat by Pulse Oximetry (%) GENERAL: NAD HEAD: Normal with no signs of trauma. EYES: EOMI Sclera Clear LUNGS:CTAB HEART: RRR S1S2 ABDOMEN: ++Rebound RLQ. Hypoactive Bowel Sounds. . LOWER EXTREMITIES: No CCE NEUROLOGICAL: Cranial nerves II-XII intact. PSYCHIATRIC: Cooperative. Good eye contact. Appropriate mood and affect. SKIN: Warm, dry, normal turgor, no rashes or lesions noted. Laboratory Results - last 24 hr 05/28/19 05/28/19 05/28/19 11:30 11:30 11:30 WBC 11.9 H RBC 4.16 Hgb 10.4 L Hct 32.5 D MCV 78.1 L MCH 25.0 L MCHC 32.0 RDW 15.9 H Plt Count 380 MPV 7.9 Absolute Neuts (auto) 9.6 H Neutrophils % 80.7 Lymphocytes % 12.1 D Monocytes % 6.5 D Eosinophils % 0.2 Basophils % 0.5 Nucleated RBC % 0 Sodium 140 Potassium 4.3 Chloride 103 Carbon Dioxide 28 Anion Gap 9 BUN 12.8 Creatinine 0.9 Est GFR (CKD-EPI)AfAm 68.05 Est GFR (CKD-EPI)NonAf 58.71 Random Glucose 123 H Lactic Acid Calcium 9.1 Total Bilirubin 0.5 AST 18 ALT 20 Alkaline Phosphatase 140 H Creatine Kinase 81 Troponin I < 0.02 B-Natriuretic Peptide 288.6 Total Protein 7.5 Albumin 3.3 L Urine Color Urine Appearance Urine pH Ur Specific [place] Urine Protein Urine Glucose (UA) Urine Ketones Urine Blood Urine Nitrite Urine Bilirubin Urine Urobilinogen Ur Leukocyte Esterase Urine WBC (Auto) Urine RBC (Auto) Urine Casts (Auto) U Epithel Cells (Auto) Urine Bacteria (Auto) 05/28/19 05/28/19 11:30 11:53 WBC RBC Hgb Hct MCV MCH MCHC RDW Plt Count MPV Absolute Neuts (auto) Neutrophils % Lymphocytes % Monocytes % Eosinophils % Basophils % Nucleated RBC % Sodium Potassium Chloride Carbon Dioxide Anion Gap BUN Creatinine Est GFR (CKD-EPI)AfAm Est GFR (CKD-EPI)NonAf Random Glucose Lactic Acid 1.2 Calcium Total Bilirubin AST ALT Alkaline Phosphatase Creatine Kinase Troponin I B-Natriuretic Peptide Total Protein Albumin Urine Color Yellow Urine Appearance Clear Urine pH 6.5 Ur Specific [place] 1.019 Urine Protein 2+ H Urine Glucose (UA) Negative Urine Ketones Negative Urine Blood Negative Urine Nitrite Negative Urine Bilirubin Negative Urine Urobilinogen 1.0 Ur Leukocyte Esterase Trace Urine WBC (Auto) 9 Urine RBC (Auto) 2 Urine Casts (Auto) 2 U Epithel Cells (Auto) 7.2 Urine Bacteria (Auto) 95.7 Active Medications Generic Name Dose Route Start Last Admin Trade Name Freq PRN Reason Stop Dose Admin Heparin Sodium (Porcine) 5,000 unit 05/28/19 22:00 05/28/19 23:33 Heparin - SQ Not Given BID AZRA Sodium Chloride 1,000 mls @ 75 mls/hr 05/28/19 18:00 05/29/19 06:51 Normal Saline - IV 75 mls/hr ASDIR AZRA Administration Morphine Sulfate 2 mg 05/28/19 17:57 Morphine Sulfate IVPUSH Q4H PRN PAIN LEVEL 4 - 6 EXAM#: TYPE/EXAM: RESULT: [id number] CT/ABDOMEN PELVIS CT WITH CONTR HISTORY PROVIDED: Epigastric and the left lower quadrant pain. Sequential axial images were obtained from the domes of the diaphragms through the symphysis pubis following the administration of intravenous contrast material. Evaluation of the lung bases demonstrates chronic interstitial lung disease with no acute infiltrates or pleural effusions. The heart is enlarged. There is a small hiatal hernia in the retrocardiac space. The liver, spleen, pancreas, adrenal glands and kidneys demonstrate no significant abnormalities. The gallbladder has been removed. There is no evidence of intra-abdominal or retroperitoneal lymphadenopathy or fluid collections. Within the right lower quadrant extending from the base of the cecum, there is a thick walled tubular structure consistent with an inflamed appendix. Inflammatory changes are seen about the appendix with ill-defined fluid collection measuring 2.8 x 2.6 cm suspicious for a developing abscess. Clinical correlation and follow-up is recommended. There is no evidence of pneumoperitoneum or bowel obstruction. There is diverticulosis of the sigmoid colon with no evidence of acute diverticulitis. Examination of the pelvis demonstrates no evidence of pelvic masses, fluid collections or lymphadenopathy. There is no evidence of acute bony pathology. IMPRESSION: Findings suspicious for acute appendicitis with developing abscess. Clinical correlation and follow -up recommended. Please see above discussion. Reported By: Nura Montana MD ASSESSMENT/PLAN: Pt is an 83y/o F w PMHx DM, HTN, HLD, hypothyroidism who presented to [facility] due to diffuse abdominal pain. # GI- Abscess of Appendix -WBC 12.6, Temp WNL, BP 150s/80s, RR 18. Pt does not appear to be septic - CTAP--> IMPRESSION: Findings suspicious for acute appendicitis with developing abscess. Please see above report for details. -I.R on board. Plan to drain abscess today. -Continue Zosyn for Anaerobic Coverage -NPO -Tylenol PRN for pain/Fever #FEN NS@75cc/hr Monitor Electrolytes NPO #DVT ppx: HEPSQTID Medications need to be reconciled by Primary team. Dispo: We will continue to follow the patient. Thank you for this consultative opportunity. Visit type - Emergency Visit Emergency Visit: Yes ED Registration Date: 05/28/19 Care time: The patient presented to the Emergency Department on the above date and was hospitalized for further evaluation of their emergent condition. - New Patient This patient is new to me today: Yes Date on this admission: 05/29/19 - Critical Care Critical Care patient: No ATTENDING PHYSICIAN STATEMENT I saw and evaluated the patient. I reviewed the resident's note and discussed the case with the resident. I agree with the resident's findings and plan as documented. SUBJECTIVE: OBJECTIVE: ASSESSMENT AND PLAN:
[2019-05-29 08:39] LABS: BASO % 0.3 % (0-2.0); EOS % 0.3 % (0-4.5); HEMATOCRIT 32.1 % (32.4-45.2); HEMOGLOBIN 10.6 GM/dL (10.7-15.3); LYMPH % 10.6 % (8-40); MCH 25.7 pg (25.7-33.7); MCHC 33.1 g/dl (32.0-36.0); MEAN CELL VOLUME 77.7 fl (80-96); MEAN PLT VOLUME 7.5 fl (7.5-11.1); MONO % 6.4 % (3.8-10.2); NEUT % 82.4 % (42.8-82.8); PLATELET COUNT 373 K/MM3 (134-434); RBC 4.13 M/mm3 (3.60-5.2); RDW 15.8 % (11.6-15.6); WHITE BLOOD COUNT 12.6 K/mm3 (4.0-10.0)
[2019-05-29 09:03] LABS: BILIRUBIN,TOTAL 0.7 mg/dL (0.2-1); BLOOD UREA NITROGEN 8.8 mg/dL (7-18); CALCIUM 8.9 mg/dL (8.5-10.1); CREATININE 0.9 mg/dL (0.55-1.3); TOT PROT 7.1 g/dl (6.4-8.2)
[2019-05-29 09:34] LABS: INR 1.22 (0.83-1.09); PROTHROMBIN TIME (PATIENT) 14.4 SEC (9.7-13.0)
[2019-05-29] MEDS ORDERED: PIPERACILLIN/TAZOBACTAM 4.5 GM VIAL IVPB ONE (09:53)
[2019-05-29] MEDS ORDERED: DEXTROSE 5%-WATER 100 ML IVPB ONE (09:53)
[2019-05-29] MEDS ORDERED: PIPERACILLIN/TAZOB 4.5 GM 4.5 GM in DEXTROSE 5%-WATER 100 ML IVPB ONE (10:00)
--- NOTE | 2019-05-29 10:13 | EKG ---
Test Reason : Blood Pressure : / mmHG Vent. Rate : 080 BPM Atrial Rate : 080 BPM P-R Int : 238 ms QRS Dur : 124 ms QT Int : 394 ms P-R-T Axes : 042 079 017 degrees QTc Int : 454 ms SINUS RHYTHM WITH 1ST DEGREE A-V BLOCK RIGHT BUNDLE BRANCH BLOCK ABNORMAL ECG WHEN COMPARED WITH ECG OF 15-MAY-2017 13:47, NO SIGNIFICANT CHANGE WAS FOUND Confirmed by Jc Champion MD ([id number]) on 05/29/2019 10:13:01 AM Referred By: Confirmed By:Jc Champion MD
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
[2019-05-29] MEDS: HEPARIN NA (PORCINE) 5,000 UNITS/ML 1ML VIAL SQ SCH (11:55)
[2019-05-29] MEDS: MORPHINE SULFATE 2 MG/ML VIAL IVPUSH PRN ×2 (15:54→20:53)
[2019-05-29] MEDS ORDERED: PIPERACILLIN/TAZOBACTAM 3.375 GM VIAL IVPB ONE (17:33)
[2019-05-29] MEDS ORDERED: DEXTROSE 5%-WATER - 50 ML IVPB ONE (17:33)
[2019-05-29] MEDS: PIPERACILLIN/TAZOB 3.375 GM 3.375 GM in DEXTROSE 5%-WATER - 50 ML IVPB SCH (18:09)
--- NOTE | 2019-05-29 19:29 | PN ---
Progress Note, Physician - Current Medication List Current Medications: Active Medications Diphenhydramine HCl (Benadryl Injection -) 25 mg IVPB ONCE PRN PRN Reason: INSOMNIA Stop: 05/30/19 10:00 Heparin Sodium (Porcine) (Heparin -) 5,000 unit SQ BID AZRA Last Admin: 05/29/19 11:55 Dose: 5,000 unit Sodium Chloride (Normal Saline -) 1,000 mls @ 75 mls/hr IV ASDIR AZRA Last Admin: 05/29/19 06:51 Dose: 75 mls/hr Piperacillin Sod/Tazobactam (Sod 3.375 gm/ Dextrose) 50 mls @ 100 mls/hr IVPB Q8H-IV AZRA; Protocol Last Admin: 05/29/19 18:09 Dose: 100 mls/hr Morphine Sulfate (Morphine Sulfate) 2 mg IVPUSH Q4H PRN PRN Reason: PAIN LEVEL 4 - 6 Last Admin: 05/29/19 15:54 Dose: 2 mg - Objective Vital Signs: Vital Signs Temperature 99.0 F 05/29/19 13:24 Pulse Rate 87 05/29/19 13:24 Respiratory Rate 18 05/29/19 13:24 Blood Pressure 154/86 05/29/19 13:24 O2 Sat by Pulse Oximetry (%) 95 05/29/19 09:00 Constitutional: Yes: No Distress HENT: Yes: Atraumatic Neck: Yes: Supple Cardiovascular: Yes: Regular Rate and Rhythm Respiratory: Yes: CTA Bilaterally Gastrointestinal: Yes: Normal Bowel Sounds, Tenderness (rlq) Extremities: Yes: WNL Neurological: Yes: Alert, Oriented Labs: CBC, BMP 05/29/19 07:46 05/29/19 07:46 INR, PTT INR 1.22 (0.83-1.09) H 05/29/19 08:59 Problem List - Problems (1) Appendicitis with abscess Assessment/Plan: npo ivf surgery and id consult Code(s): K35.33 - ACUTE APPENDICITIS WITH PERF AND LOC PERITONITIS, WITH ABSCS (2) Hyperlipidemia Code(s): E78.5 - HYPERLIPIDEMIA, UNSPECIFIED (3) Hypertension Code(s): I10 - ESSENTIAL (PRIMARY) HYPERTENSION Qualifiers: Hypertension type: essential hypertension Qualified Code(s): I10 - Essential (primary) hypertension (4) Hypothyroidism Assessment/Plan: on meds Code(s): E03.9 - HYPOTHYROIDISM, UNSPECIFIED (5) Type 2 diabetes mellitus Assessment/Plan: monitor bs Code(s): E11.9 - TYPE 2 DIABETES MELLITUS WITHOUT COMPLICATIONS
[2019-05-30] MEDS: HEPARIN NA (PORCINE) 5,000 UNITS/ML 1ML VIAL SQ SCH ×3 (00:01→23:40)
[2019-05-30] MEDS ORDERED: DEXTROSE 5%-WATER - 50 ML IVPB ONE ×3 (01:53→17:25)
[2019-05-30] MEDS ORDERED: PIPERACILLIN/TAZOBACTAM 3.375 GM VIAL IVPB ONE ×3 (01:53→17:25)
[2019-05-30] MEDS: PIPERACILLIN/TAZOB 3.375 GM 3.375 GM in DEXTROSE 5%-WATER - 50 ML IVPB SCH ×3 (02:18→18:04)
--- NOTE | 2019-05-30 11:13 | PN ---
Progress Note, Physician History of Present Illness: patient stable improving - Current Medication List Current Medications: Active Medications Heparin Sodium (Porcine) (Heparin -) 5,000 unit SQ BID AZRA Last Admin: 05/30/19 00:01 Dose: 5,000 unit Piperacillin Sod/Tazobactam (Sod 3.375 gm/ Dextrose) 50 mls @ 100 mls/hr IVPB Q8H-IV AZRA; Protocol Last Admin: 05/30/19 02:18 Dose: 100 mls/hr Sodium Chloride (Normal Saline -) 1,000 mls @ 50 mls/hr IV ASDIR AZRA Last Admin: 05/29/19 21:58 Dose: 50 mls/hr Morphine Sulfate (Morphine Sulfate) 2 mg IVPUSH Q4H PRN PRN Reason: PAIN LEVEL 4 - 6 Last Admin: 05/29/19 20:53 Dose: 2 mg - Objective Vital Signs: Vital Signs Temperature 98.7 F 05/30/19 05:45 Pulse Rate 99 H 05/30/19 05:45 Respiratory Rate 18 05/30/19 05:45 Blood Pressure 159/79 05/30/19 05:45 O2 Sat by Pulse Oximetry (%) 94 L 05/29/19 21:00 Constitutional: Yes: No Distress, Calm Cardiovascular: Yes: S1, S2 Respiratory: Yes: Regular, CTA Bilaterally Gastrointestinal: Yes: Soft, Hypoactive Bowel Sounds, Other (abd pain) Musculoskeletal: Yes: WNL Extremities: Yes: WNL Neurological: Yes: Alert, Oriented Psychiatric: Yes: Alert, Oriented Labs: CBC, BMP 05/29/19 07:46 05/29/19 07:46 INR, PTT INR 1.22 (0.83-1.09) H 05/29/19 08:59 Assessment/Plan Problem List - Problems (1) Appendicitis with abscess Problems reviewed: Yes Code(s): K35.33 - ACUTE APPENDICITIS WITH PERF AND LOC PERITONITIS, WITH ABSCS (2) Abdominal pain, RLQ Problems reviewed: Yes Code(s): R10.31 - RIGHT LOWER QUADRANT PAIN (3) Asthma Problems reviewed: Yes Code(s): J45.909 - UNSPECIFIED ASTHMA, UNCOMPLICATED Qualifiers: Asthma severity: moderate Asthma complication type: uncomplicated Qualified Code(s): J45.20 - Mild intermittent asthma, uncomplicated (4) Hyperlipidemia Problems reviewed: Yes Code(s): E78.5 - HYPERLIPIDEMIA, UNSPECIFIED (5) Hypertension Problems reviewed: Yes Code(s): I10 - ESSENTIAL (PRIMARY) HYPERTENSION Qualifiers: Hypertension type: essential hypertension Qualified Code(s): I10 - Essential (primary) hypertension (6) Hypothyroidism Problems reviewed: Yes Code(s): E03.9 - HYPOTHYROIDISM, UNSPECIFIED plan iv abx npo surgery on board rest as per th team monitor wbc closely will check wbc
[2019-05-30 12:45] LABS: HEMATOCRIT 34.1 % (32.4-45.2); MCH 25.3 pg (25.7-33.7); MCHC 32.3 g/dl (32.0-36.0); MEAN CELL VOLUME 78.1 fl (80-96); MEAN PLT VOLUME 7.6 fl (7.5-11.1); PLATELET COUNT 411 K/MM3 (134-434); RBC 4.37 M/mm3 (3.60-5.2); WHITE BLOOD COUNT 14.6 K/mm3 (4.0-10.0)
--- NOTE | 2019-05-30 14:29 | PN ---
Progress Note, Physician - Current Medication List Current Medications: Active Medications Heparin Sodium (Porcine) (Heparin -) 5,000 unit SQ BID AZRA Last Admin: 05/30/19 11:27 Dose: 5,000 unit Piperacillin Sod/Tazobactam (Sod 3.375 gm/ Dextrose) 50 mls @ 100 mls/hr IVPB Q8H-IV AZRA; Protocol Last Admin: 05/30/19 11:26 Dose: 100 mls/hr Sodium Chloride (Normal Saline -) 1,000 mls @ 50 mls/hr IV ASDIR AZRA Last Admin: 05/29/19 21:58 Dose: 50 mls/hr Morphine Sulfate (Morphine Sulfate) 2 mg IVPUSH Q4H PRN PRN Reason: PAIN LEVEL 4 - 6 Last Admin: 05/29/19 20:53 Dose: 2 mg - Objective Vital Signs: Vital Signs Temperature 98 F 05/30/19 11:34 Pulse Rate 110 H 05/30/19 11:34 Respiratory Rate 18 05/30/19 11:34 Blood Pressure 136/62 05/30/19 11:34 O2 Sat by Pulse Oximetry (%) 94 L 05/29/19 21:00 Labs: CBC, BMP 05/30/19 12:11 05/29/19 07:46 INR, PTT INR 1.22 (0.83-1.09) H 05/29/19 08:59 Problem List - Problems (1) Appendicitis with abscess Code(s): K35.33 - ACUTE APPENDICITIS WITH PERF AND LOC PERITONITIS, WITH ABSCS (2) Abdominal pain, RLQ Code(s): R10.31 - RIGHT LOWER QUADRANT PAIN (3) Asthma Code(s): J45.909 - UNSPECIFIED ASTHMA, UNCOMPLICATED Qualifiers: Asthma severity: moderate Asthma complication type: uncomplicated Qualified Code(s): J45.20 - Mild intermittent asthma, uncomplicated (4) Hyperlipidemia Code(s): E78.5 - HYPERLIPIDEMIA, UNSPECIFIED (5) Hypertension Code(s): I10 - ESSENTIAL (PRIMARY) HYPERTENSION Qualifiers: Hypertension type: essential hypertension Qualified Code(s): I10 - Essential (primary) hypertension (6) Hypothyroidism Code(s): E03.9 - HYPOTHYROIDISM, UNSPECIFIED
[2019-05-30] MEDS: SODIUM CHLORIDE 1,000 ML IV SCH ×2 (18:04→19:41)
--- NOTE | 2019-05-30 18:25 | PN ---
Progress Note, Physician - Current Medication List Current Medications: Active Medications Heparin Sodium (Porcine) (Heparin -) 5,000 unit SQ BID AZRA Last Admin: 05/30/19 11:27 Dose: 5,000 unit Piperacillin Sod/Tazobactam (Sod 3.375 gm/ Dextrose) 50 mls @ 100 mls/hr IVPB Q8H-IV AZRA; Protocol Last Admin: 05/30/19 18:04 Dose: 100 mls/hr Sodium Chloride (Normal Saline -) 1,000 mls @ 50 mls/hr IV ASDIR AZRA Last Admin: 05/30/19 18:04 Dose: 50 mls/hr Morphine Sulfate (Morphine Sulfate) 2 mg IVPUSH Q4H PRN PRN Reason: PAIN LEVEL 4 - 6 Last Admin: 05/29/19 20:53 Dose: 2 mg - Objective Vital Signs: Vital Signs Temperature 99.1 F 05/30/19 14:00 Pulse Rate 98 H 05/30/19 14:00 Respiratory Rate 18 05/30/19 14:00 Blood Pressure 156/78 05/30/19 14:00 O2 Sat by Pulse Oximetry (%) 94 L 05/30/19 09:00 Constitutional: Yes: No Distress HENT: Yes: Atraumatic Neck: Yes: Supple Cardiovascular: Yes: Regular Rate and Rhythm Respiratory: Yes: CTA Bilaterally Extremities: Yes: WNL Neurological: Yes: Alert, Oriented Labs: CBC, BMP 05/30/19 12:11 05/29/19 07:46 INR, PTT INR 1.22 (0.83-1.09) H 05/29/19 08:59 Problem List - Problems (1) Appendicitis with abscess Assessment/Plan: on clear liquid diet ivf surgery and id consult Code(s): K35.33 - ACUTE APPENDICITIS WITH PERF AND LOC PERITONITIS, WITH ABSCS (2) Hyperlipidemia Code(s): E78.5 - HYPERLIPIDEMIA, UNSPECIFIED (3) Hypertension Code(s): I10 - ESSENTIAL (PRIMARY) HYPERTENSION Qualifiers: Hypertension type: essential hypertension Qualified Code(s): I10 - Essential (primary) hypertension (4) Hypothyroidism Assessment/Plan: on meds Code(s): E03.9 - HYPOTHYROIDISM, UNSPECIFIED (5) Type 2 diabetes mellitus Assessment/Plan: monitor bs Code(s): E11.9 - TYPE 2 DIABETES MELLITUS WITHOUT COMPLICATIONS
[2019-05-31] MEDS ORDERED: DEXTROSE 5%-WATER - 50 ML IVPB ONE ×3 (00:52→18:02)
[2019-05-31] MEDS ORDERED: PIPERACILLIN/TAZOBACTAM 3.375 GM VIAL IVPB ONE ×3 (00:52→18:02)
[2019-05-31] MEDS: PIPERACILLIN/TAZOB 3.375 GM 3.375 GM in DEXTROSE 5%-WATER - 50 ML IVPB SCH ×3 (01:17→18:05)
[2019-05-31] MEDS: HEPARIN NA (PORCINE) 5,000 UNITS/ML 1ML VIAL SQ SCH ×2 (10:18→22:08)
[2019-05-31] MEDS ORDERED: PT OWN MED DRAWER 7, Y5N ONE ×2 (11:27→21:19)
--- NOTE | 2019-05-31 11:34 | PN ---
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 - Current Medication List Current Medications: Active Medications Heparin Sodium (Porcine) (Heparin -) 5,000 unit SQ BID AZRA Last Admin: 05/31/19 10:18 Dose: 5,000 unit Piperacillin Sod/Tazobactam (Sod 3.375 gm/ Dextrose) 50 mls @ 100 mls/hr IVPB Q8H-IV AZRA; Protocol Last Admin: 05/31/19 10:16 Dose: 100 mls/hr Sodium Chloride (Normal Saline -) 1,000 mls @ 50 mls/hr IV ASDIR AZRA Last Admin: 05/30/19 18:04 Dose: 50 mls/hr Morphine Sulfate (Morphine Sulfate) 2 mg IVPUSH Q4H PRN PRN Reason: PAIN LEVEL 4 - 6 Last Admin: 05/29/19 20:53 Dose: 2 mg - Objective Vital Signs: Vital Signs Temperature 98.0 F 05/31/19 09:00 Pulse Rate 108 H 05/31/19 09:00 Respiratory Rate 20 05/31/19 09:00 Blood Pressure 131/66 05/31/19 09:00 O2 Sat by Pulse Oximetry (%) 95 05/30/19 21:45 Constitutional: Yes: No Distress, Calm Cardiovascular: Yes: S1, S2 Respiratory: Yes: Regular, CTA Bilaterally Gastrointestinal: Yes: Soft, Hypoactive Bowel Sounds Musculoskeletal: Yes: WNL Extremities: Yes: WNL Neurological: Yes: Alert, Oriented Psychiatric: Yes: Alert, Oriented Labs: CBC, BMP 05/30/19 12:11 05/29/19 07:46 INR, PTT INR 1.22 (0.83-1.09) H 05/29/19 08:59 Assessment/Plan Problem List - Problems (1) Appendicitis with abscess Problems reviewed: Yes Code(s): K35.33 - ACUTE APPENDICITIS WITH PERF AND LOC PERITONITIS, WITH ABSCS (2) Abdominal pain, RLQ Problems reviewed: Yes Code(s): R10.31 - RIGHT LOWER QUADRANT PAIN (3) Asthma Problems reviewed: Yes Code(s): J45.909 - UNSPECIFIED ASTHMA, UNCOMPLICATED Qualifiers: Asthma severity: moderate Asthma complication type: uncomplicated Qualified Code(s): J45.20 - Mild intermittent asthma, uncomplicated (4) Hyperlipidemia Problems reviewed: Yes Code(s): E78.5 - HYPERLIPIDEMIA, UNSPECIFIED (5) Hypertension Problems reviewed: Yes Code(s): I10 - ESSENTIAL (PRIMARY) HYPERTENSION Qualifiers: Hypertension type: essential hypertension Qualified Code(s): I10 - Essential (primary) hypertension (6) Hypothyroidism Problems reviewed: Yes Code(s): E03.9 - HYPOTHYROIDISM, UNSPECIFIED plan iv abx npo surgery on board rest as per th team monitor wbc closely will check wbc patients wbc has increased i think patient should get a repeat scan
[2019-05-31] MEDS: ACETAMINOPHEN 325 MG TABLET (FP) PO PRN (13:18)
[2019-05-31 13:54] LABS: BLOOD UREA NITROGEN 13.8 mg/dL (7-18); CALCIUM 8.3 mg/dL (8.5-10.1); CREATININE 0.9 mg/dL (0.55-1.3); MAGNESIUM 1.2 mg/dL (1.8-2.4); PHOSPHOROUS 2.9 mg/dL (2.5-4.9); POTASSIUM 3.5 mmol/L (3.5-5.1)
[2019-05-31] MEDS: SODIUM CHLORIDE 1,000 ML IV SCH (15:49)
--- NOTE | 2019-05-31 16:51 | PN ---
Progress Note, Physician - Current Medication List Current Medications: Active Medications Acetaminophen (Tylenol -) 650 mg PO Q6H PRN PRN Reason: PAIN 4-6 Last Admin: 05/31/19 13:18 Dose: 650 mg Atorvastatin Calcium (Lipitor -) 20 mg PO HS [facility]RA Diltiazem HCl (Cardizem Cd -) 360 mg PO DAILY [facility] Heparin Sodium (Porcine) (Heparin -) 5,000 unit SQ BID AZRA Last Admin: 05/31/19 10:18 Dose: 5,000 unit Piperacillin Sod/Tazobactam (Sod 3.375 gm/ Dextrose) 50 mls @ 100 mls/hr IVPB Q8H-IV AZRA; Protocol Last Admin: 05/31/19 10:16 Dose: 100 mls/hr Levothyroxine Sodium (Synthroid -) 100 mcg PO DAILY@0700 [facility]RA Non-Formulary Medication (Eszopiclone [Lunesta]) 3 mg PO HS AZRA Non-Formulary Medication (Omeprazole) 20 mg PO DAILY AZRA - Objective Vital Signs: Vital Signs Temperature 98.3 F 05/31/19 14:00 Pulse Rate 81 05/31/19 14:00 Respiratory Rate 20 05/31/19 14:00 Blood Pressure 158/70 05/31/19 14:00 O2 Sat by Pulse Oximetry (%) 95 05/30/19 21:45 Constitutional: Yes: No Distress HENT: Yes: Atraumatic Neck: Yes: Supple Cardiovascular: Yes: Regular Rate and Rhythm Respiratory: Yes: CTA Bilaterally Gastrointestinal: Yes: Normal Bowel Sounds Extremities: Yes: WNL Neurological: Yes: Alert, Oriented Labs: CBC, BMP 05/30/19 12:11 05/31/19 13:06 INR, PTT INR 1.22 (0.83-1.09) H 05/29/19 08:59 Problem List - Problems (1) Appendicitis with abscess Assessment/Plan: advance diet as tolerated Code(s): K35.33 - ACUTE APPENDICITIS WITH PERF AND LOC PERITONITIS, WITH ABSCS (2) Hyperlipidemia Code(s): E78.5 - HYPERLIPIDEMIA, UNSPECIFIED (3) Hypertension Code(s): I10 - ESSENTIAL (PRIMARY) HYPERTENSION Qualifiers: Hypertension type: essential hypertension Qualified Code(s): I10 - Essential (primary) hypertension (4) Hypothyroidism Code(s): E03.9 - HYPOTHYROIDISM, UNSPECIFIED (5) Type 2 diabetes mellitus Code(s): E11.9 - TYPE 2 DIABETES MELLITUS WITHOUT COMPLICATIONS
[2019-05-31] MEDS: LEVOTHYROXINE NA 100 MCG TABLET (FP) PO SCH (18:07)
[2019-05-31] MEDS: PANTOPRAZOLE 20 MG TABLET (FP) PO SCH (18:07)
--- NOTE | 2019-05-31 18:21 | PN ---
Progress Note, Physician - Current Medication List Current Medications: Active Medications Acetaminophen (Tylenol -) 650 mg PO Q6H PRN PRN Reason: PAIN 4-6 Last Admin: 05/31/19 13:18 Dose: 650 mg Atorvastatin Calcium (Lipitor -) 20 mg PO HS [facility] Diltiazem HCl (Cardizem Cd -) 360 mg PO DAILY [facility] Heparin Sodium (Porcine) (Heparin -) 5,000 unit SQ BID [facility] Last Admin: 05/31/19 10:18 Dose: 5,000 unit Piperacillin Sod/Tazobactam (Sod 3.375 gm/ Dextrose) 50 mls @ 100 mls/hr IVPB Q8H-IV AZRA; Protocol Last Admin: 05/31/19 18:05 Dose: 100 mls/hr Levothyroxine Sodium (Synthroid -) 100 mcg PO DAILY@0700 [facility] Last Admin: 05/31/19 18:07 Dose: 100 mcg Pantoprazole Sodium (Protonix -) 20 mg PO DAILY [facility] Last Admin: 05/31/19 18:07 Dose: 20 mg Zolpidem Tartrate (Ambien -) 5 mg PO HS PRN PRN Reason: INSOMNIA - Objective Vital Signs: Vital Signs Temperature 97.5 F L 05/31/19 17:31 Pulse Rate 79 05/31/19 17:31 Respiratory Rate 18 05/31/19 17:31 Blood Pressure 167/62 05/31/19 17:31 O2 Sat by Pulse Oximetry (%) 95 05/30/19 21:45 Labs: CBC, BMP 05/30/19 12:11 05/31/19 13:06 INR, PTT INR 1.22 (0.83-1.09) H 05/29/19 08:59 Problem List - Problems (1) Appendicitis with abscess Code(s): K35.33 - ACUTE APPENDICITIS WITH PERF AND LOC PERITONITIS, WITH ABSCS (2) Abdominal pain, RLQ Code(s): R10.31 - RIGHT LOWER QUADRANT PAIN (3) Asthma Code(s): J45.909 - UNSPECIFIED ASTHMA, UNCOMPLICATED Qualifiers: Asthma severity: moderate Asthma complication type: uncomplicated Qualified Code(s): J45.20 - Mild intermittent asthma, uncomplicated (4) Hyperlipidemia Code(s): E78.5 - HYPERLIPIDEMIA, UNSPECIFIED (5) Hypertension Code(s): I10 - ESSENTIAL (PRIMARY) HYPERTENSION Qualifiers: Hypertension type: essential hypertension Qualified Code(s): I10 - Essential (primary) hypertension (6) Hypothyroidism Code(s): E03.9 - HYPOTHYROIDISM, UNSPECIFIED
[2019-05-31] MEDS ORDERED: ATORVASTATIN CA 20 MG TABLET (FP) PO SCH (22:00)
[2019-05-31] MEDS ORDERED: diphenhydrAMINE HCL 25 MG CAPSULE (FP) PO ONE ×2 (22:00→22:05)
[2019-05-31] MEDS ORDERED: ZOLPIDEM TARTRATE 5 MG TABLET PO PRN (22:00)
[2019-06-01] MEDS ORDERED: DEXTROSE 5%-WATER - 50 ML IVPB ONE ×2 (01:35→09:34)
[2019-06-01] MEDS ORDERED: PIPERACILLIN/TAZOBACTAM 3.375 GM VIAL IVPB ONE ×2 (01:35→09:33)
[2019-06-01] MEDS: PIPERACILLIN/TAZOB 3.375 GM 3.375 GM in DEXTROSE 5%-WATER - 50 ML IVPB SCH ×2 (02:28→09:54)
[2019-06-01] MEDS: LEVOTHYROXINE NA 100 MCG TABLET (FP) PO SCH (06:22)
[2019-06-01 07:56] LABS: BASO % 0.5 % (0-2.0); EOS % 1.7 % (0-4.5); LYMPH % 12.9 % (8-40); MCH 25.6 pg (25.7-33.7); MCHC 33.2 g/dl (32.0-36.0); MEAN PLT VOLUME 7.5 fl (7.5-11.1); MONO % 7.7 % (3.8-10.2); NEUT % 77.2 % (42.8-82.8); PLATELET COUNT 402 K/MM3 (134-434); RBC 3.89 M/mm3 (3.60-5.2); RDW 15.9 % (11.6-15.6); WHITE BLOOD COUNT 9.7 K/mm3 (4.0-10.0)
[2019-06-01 08:26] LABS: ALBUMIN 2.5 g/dl (3.4-5.0); BILIRUBIN,TOTAL 0.5 mg/dL (0.2-1); BLOOD UREA NITROGEN 8.4 mg/dL (7-18); CALCIUM 8.7 mg/dL (8.5-10.1); CREATININE 0.8 mg/dL (0.55-1.3); POTASSIUM 3.5 mmol/L (3.5-5.1); TOT PROT 6.6 g/dl (6.4-8.2)
[2019-06-01 09:30] VITALS: BP 156/75; PULSE 81; TEMP 97.7
[2019-06-01] MEDS: ACETAMINOPHEN 325 MG TABLET (FP) PO PRN (09:53)
[2019-06-01] MEDS: PANTOPRAZOLE 20 MG TABLET (FP) PO SCH (09:54)
[2019-06-01] MEDS: HEPARIN NA (PORCINE) 5,000 UNITS/ML 1ML VIAL SQ SCH (09:58)
[2019-06-01] MEDS ORDERED: MAGNESIUM OXIDE 400 MG TABLET (FP) PO ONE (10:13)
--- NOTE | 2019-06-01 10:14 | DS ---
Physical Examination Vital Signs: Vital Signs Temperature 97.7 F 06/01/19 09:00 Pulse Rate 81 06/01/19 09:00 Respiratory Rate 20 06/01/19 09:00 Blood Pressure 156/75 06/01/19 09:00 O2 Sat by Pulse Oximetry (%) 95 05/31/19 21:00 Constitutional: Yes: No Distress HENT: Yes: Atraumatic Neck: Yes: Supple Cardiovascular: Yes: Regular Rate and Rhythm Respiratory: Yes: CTA Bilaterally Gastrointestinal: Yes: Normal Bowel Sounds Extremities: Yes: WNL Edema: No Neurological: Yes: Alert, Oriented Labs: CBC, BMP 06/01/19 06:50 06/01/19 06:50 Discharge Summary Problems reviewed: Yes Reason For Visit: ABSCESS OF APPENDIX Current Active Problems Abdominal pain, RLQ (Acute) Appendicitis with abscess (Acute) Condition: Stable - Instructions Diet, Activity, Other Instructions: see pmd 1-2 weeks see surgery 2-3 weeks soft diet Referrals: Trudy Null MD [Staff Physician] - Kemar Anne MD [Staff Physician] - Disposition: [facility]NS/HOME HEALTH CARE - Home Medications Comprehensive Discharge Medication List: Ambulatory Orders Atorvastatin Ca [Lipitor] 20 mg PO HS 03/03/17 Diltiazem Cd [Cardizem Cd -] 360 mg PO DAILY 03/03/17 Levothyroxine [Synthroid -] 100 mcg PO DAILY 03/03/17 Montelukast Na [Singulair -] 10 mg PO HS 03/03/17 Omeprazole 20 mg PO DAILY 03/03/17 Sertraline HCl [Zoloft -] 25 mg PO DAILY 03/03/17 metFORMIN HCL [Metformin ER Osmotic] 1,000 mg PO BID 03/03/17 Meclizine HCl [Antivert -] 25 mg PO TID PRN #21 tablet 05/15/17 Aspirin [Ecotrin] 81 mg PO DAILY 05/29/19 Eszopiclone [Lunesta] 3 mg PO HS 05/29/19 Fluticasone Propionate [Flovent Hfa] 110 mcg IH DAILY 05/29/19 Amoxicillin/Potassium Clav [Augmentin 875-125 Tablet] 1 each PO BID #20 tablet 06/01/19 tolerated diet oh home fu surgery
--- NOTE | 2019-06-01 11:33 | PN ---
Progress Note, Physician History of Present Illness: still with tenderness wbc has normalized - Current Medication List Current Medications: Active Medications Acetaminophen (Tylenol -) 650 mg PO Q6H PRN PRN Reason: PAIN 4-6 Last Admin: 06/01/19 09:53 Dose: 650 mg Atorvastatin Calcium (Lipitor -) 20 mg PO HS [facility] Last Admin: 05/31/19 22:08 Dose: 20 mg Diltiazem HCl (Cardizem Cd -) 360 mg PO DAILY [facility] Last Admin: 06/01/19 09:52 Dose: 360 mg Heparin Sodium (Porcine) (Heparin -) 5,000 unit SQ BID [facility] Last Admin: 06/01/19 09:58 Dose: 5,000 unit Piperacillin Sod/Tazobactam (Sod 3.375 gm/ Dextrose) 50 mls @ 100 mls/hr IVPB Q8H-IV [facility]; Protocol Last Admin: 06/01/19 09:54 Dose: 100 mls/hr Levothyroxine Sodium (Synthroid -) 100 mcg PO DAILY@0700 [facility] Last Admin: 06/01/19 06:22 Dose: 100 mcg Pantoprazole Sodium (Protonix -) 20 mg PO DAILY [facility] Last Admin: 06/01/19 09:54 Dose: 20 mg Zolpidem Tartrate (Ambien -) 5 mg PO HS PRN PRN Reason: INSOMNIA - Objective Vital Signs: Vital Signs Temperature 97.7 F 06/01/19 09:00 Pulse Rate 81 06/01/19 09:00 Respiratory Rate 20 06/01/19 09:00 Blood Pressure 156/75 06/01/19 09:00 O2 Sat by Pulse Oximetry (%) 95 05/31/19 21:00 Constitutional: Yes: Calm, Mild Distress Cardiovascular: Yes: Regular Rate and Rhythm Respiratory: Yes: Regular, CTA Bilaterally Gastrointestinal: Yes: Hypoactive Bowel Sounds, Tenderness (rt lower quadrant) Musculoskeletal: Yes: WNL Extremities: Yes: WNL Neurological: Yes: Alert, Oriented Psychiatric: Yes: Alert, Oriented Labs: CBC, BMP 06/01/19 06:50 06/01/19 06:50 INR, PTT INR 1.22 (0.83-1.09) H 05/29/19 08:59 Assessment/Plan Problem List - Problems (1) Appendicitis with abscess Problems reviewed: Yes Code(s): K35.33 - ACUTE APPENDICITIS WITH PERF AND LOC PERITONITIS, WITH ABSCS (2) Abdominal pain, RLQ Problems reviewed: Yes Code(s): R10.31 - RIGHT LOWER QUADRANT PAIN (3) Asthma Problems reviewed: Yes Code(s): J45.909 - UNSPECIFIED ASTHMA, UNCOMPLICATED Qualifiers: Asthma severity: moderate Asthma complication type: uncomplicated Qualified Code(s): J45.20 - Mild intermittent asthma, uncomplicated (4) Hyperlipidemia Problems reviewed: Yes Code(s): E78.5 - HYPERLIPIDEMIA, UNSPECIFIED (5) Hypertension Problems reviewed: Yes Code(s): I10 - ESSENTIAL (PRIMARY) HYPERTENSION Qualifiers: Hypertension type: essential hypertension Qualified Code(s): I10 - Essential (primary) hypertension (6) Hypothyroidism Problems reviewed: Yes Code(s): E03.9 - HYPOTHYROIDISM, UNSPECIFIED plan iv abx surgery to see the patient stil with pain await for surgical opiion
== END 2019-06-01 14:14 | disposition home health service (06) | DRG 373 ==
LOC: JER 09:48 → JERBED 14:56 → J5S 20:13
PROVIDERS: ADMIT Internal Medicine; ATTEND Internal Medicine
DX: K35.33 Acute appendicitis with perforation, localized peritonitis, and gangrene, with abscess (principal); E66.9 Obesity, unspecified; Z68.26 Body mass index [BMI] 26.0-26.9, adult; I10 Essential (primary) hypertension; E03.9 Hypothyroidism, unspecified; E78.5 Hyperlipidemia, unspecified; J45.20 Mild intermittent asthma, uncomplicated; E11.9 Type 2 diabetes mellitus without complications; I45.10 Unspecified right bundle-branch block; I44.0 Atrioventricular block, first degree; R10.31 Right lower quadrant pain
CPT/HCPCS: 36415; 71046-TC-FY; 74177-TC; 80048; 80053; 81003; 82550; 82962; 83605; 83735; 83880; 84100; 84484; 85025; 85027; 85610; 87086; 93005; 93010; 99282-25; J0131; J1644; J7030

== ENCOUNTER 2020-08-12 10:20 | Inpatient (IN) | payer OTHER ==
[2020-08-12] MEDS ORDERED: ACETAMINOPHEN 1000 MG/100 ML BAG IVPB ONE (11:10)
[2020-08-12] MEDS ORDERED: SODIUM CHLORIDE 1,000 ML IV SCH (11:15)
[2020-08-12] MEDS ORDERED: ACETAMINOPHEN INJECTION 100 ML IVPB ONE ×2 (11:19→20:51)
[2020-08-12 12:34] LABS: BASO % 0.2 % (0-2.0); EOS % 0.1 % (0-4.5); HEMATOCRIT 41.1 % (32.4-45.2); HEMOGLOBIN 13.5 GM/dL (10.7-15.3); LYMPH % 8.2 % (8-40); MCH 27.1 pg (25.7-33.7); MCHC 32.8 g/dl (32.0-36.0); MEAN CELL VOLUME 82.8 fl (80-96); MEAN PLT VOLUME 8.2 fl (7.5-11.1); MONO % 2.7 % (3.8-10.2); NEUT % 88.8 % (42.8-82.8); PLATELET COUNT 368 K/MM3 (134-434); RBC 4.96 M/mm3 (3.60-5.2); RDW 15.2 % (11.6-15.6); WHITE BLOOD COUNT 8.9 K/mm3 (4.0-10.0)
[2020-08-12 12:40] LABS: INR 1.13 (0.83-1.09); PROTHROMBIN TIME (PATIENT) 13.9 SEC (9.7-13.0)
[2020-08-12 12:43] LABS: ACTIVATED PTT 27.7 SECONDS (25.2-36.5)
[2020-08-12 12:50] LABS: CHLORIDE 100 mmol/L (98-107); SODIUM 139 mmol/L (136-145)
[2020-08-12 12:54] LABS: ALBUMIN 3.7 g/dl (3.4-5.0); ANION GAP 13 MMOL/L (8-16); CALCIUM 9.4 mg/dL (8.5-10.1); CO2 26 mmol/L (21-32)
[2020-08-12 12:55] LABS: BLOOD UREA NITROGEN 15.5 mg/dL (7-18); GLUCOSE,RANDOM 182 mg/dL (74-106); LIPASE 68 U/L (73-393)
[2020-08-12 12:57] LABS: CREATININE 1.3 mg/dL (0.55-1.3); PHOSPHOROUS 4.2 mg/dL (2.5-4.9); SGOT/AST 26 U/L (15-37); SGPT/ALT 19 U/L (13-61)
[2020-08-12 12:59] LABS: BILIRUBIN,TOTAL 0.8 mg/dL (0.2-1); TOT PROT 7.8 g/dl (6.4-8.2)
[2020-08-12 13:00] LABS: ALK PHOS 124 U/L (45-117)
[2020-08-12] MEDS ORDERED: PIPERACILLIN/TAZOB 3.375 GM 3.375 GM in DEXTROSE 5%-WATER - 50 ML IVPB ONE (15:54)
[2020-08-12] MEDS ORDERED: MIDAZOLAM HCL 2 MG/2 ML SINGLE DOSE VIAL ONE ×2 (16:47→17:39)
[2020-08-12] MEDS ORDERED: PROPOFOL 20 ML ONE (16:47)
[2020-08-12] MEDS ORDERED: PIPERACILLIN/TAZOBACTAM 3.375 GM VIAL IVPB ONE ×2 (17:00→17:05)
[2020-08-12] MEDS ORDERED: MAGNESIUM SULF 50% (8.12 MEQ/2 ML-1 GM VIAL) IVPB ONE ×2 (17:12→19:32)
[2020-08-12] MEDS ORDERED: ONDANSETRON 4 MG/2 ML VIAL IVPUSH PRN ×2 (18:34→21:01)
[2020-08-12] MEDS: ACETAMINOPHEN 1000 MG/100 ML BAG IVPB SCH (20:50)
[2020-08-12] MEDS: SODIUM CHLORIDE 1,000 ML IV SCH (21:00)
[2020-08-12] MEDS ORDERED: LACTATED RINGERS SOLUTION 1,000 ML IV SCH (21:15)
[2020-08-12] MEDS ORDERED: HEPARIN NA (PORCINE) 5,000 UNITS/ML 1ML VIAL ONE (21:39)
[2020-08-12] MEDS: HEPARIN NA (PORCINE) 5,000 UNITS/ML 1ML VIAL SQ SCH (21:42)
[2020-08-12] MEDS ORDERED: INSULIN SLIDING SCALE (NOVOLOG) 1 VIAL SQ SCH (22:00)
[2020-08-12] MEDS: INSULIN SLIDING SCALE (NOVOLOG) 1 VIAL SQ SCH (22:16)
[2020-08-12 23:02] VITALS: BMI 26.3
[2020-08-13] MEDS ORDERED: PIPERACILLIN/TAZOBACTAM 3.375 GM VIAL IVPB ONE ×3 (00:24→17:51)
[2020-08-13] MEDS ORDERED: DEXTROSE 5%-WATER - 50 ML IVPB ONE ×3 (00:24→17:51)
[2020-08-13] MEDS ORDERED: PIPERACILLIN/TAZOB 3.375 GM 3.375 GM in DEXTROSE 5%-WATER - 50 ML IVPB ONE (01:00)
[2020-08-13] MEDS: ACETAMINOPHEN 1000 MG/100 ML BAG IVPB SCH ×2 (02:24→06:59)
[2020-08-13] MEDS: INSULIN SLIDING SCALE (NOVOLOG) 1 VIAL SQ SCH ×4 (06:44→21:20)
[2020-08-13] MEDS: LEVOTHYROXINE NA 100 MCG TABLET (FP) PO SCH (06:44)
[2020-08-13] MEDS ORDERED: PIPERACILLIN/TAZOB 3.375 GM 3.375 GM in DEXTROSE 5%-WATER - 50 ML IVPB SCH (07:00)
[2020-08-13] MEDS ORDERED: PIPERACILLIN/TAZOB 2.25 GM 2.25 GM in DEXTROSE 5%-WATER - 50 ML IVPB SCH ×2 (07:00→09:00)
[2020-08-13 09:46] LABS: BASO % 0.2 % (0-2.0); HEMATOCRIT 34.9 % (32.4-45.2); HEMOGLOBIN 11.3 GM/dL (10.7-15.3); LYMPH % 9.5 % (8-40); MCHC 32.5 g/dl (32.0-36.0); MEAN CELL VOLUME 83.1 fl (80-96); MEAN PLT VOLUME 8.2 fl (7.5-11.1); MONO % 4.2 % (3.8-10.2); NEUT % 86.1 % (42.8-82.8); PLATELET COUNT 227 K/MM3 (134-434); RDW 15.6 % (11.6-15.6); WHITE BLOOD COUNT 12.8 K/mm3 (4.0-10.0)
[2020-08-13] MEDS ORDERED: oxyCODONE HCL 5 MG TABLET PO PRN (10:00)
[2020-08-13] MEDS: HEPARIN NA (PORCINE) 5,000 UNITS/ML 1ML VIAL SQ SCH ×2 (10:22→21:20)
[2020-08-13 10:46] LABS: BLOOD UREA NITROGEN 20.4 mg/dL (7-18); CALCIUM 8.2 mg/dL (8.5-10.1); MAGNESIUM 1.9 mg/dL (1.8-2.4)
[2020-08-13 10:49] LABS: PHOSPHOROUS 4.8 mg/dL (2.5-4.9)
[2020-08-13] MEDS: PIPERACILLIN/TAZOB 3.375 GM 3.375 GM in DEXTROSE 5%-WATER - 50 ML IVPB SCH ×2 (11:47→17:55)
[2020-08-13] MEDS ORDERED: ACETAMINOPHEN 1000 MG/100 ML BAG IVPB PRN (14:09)
[2020-08-13] MEDS: SODIUM CHLORIDE 1,000 ML IV SCH (19:19)
[2020-08-13] MEDS: ZOLPIDEM TARTRATE 5 MG TABLET PO PRN (22:04)
[2020-08-14] MEDS: PIPERACILLIN/TAZOB 3.375 GM 3.375 GM in DEXTROSE 5%-WATER - 50 ML IVPB SCH ×4 (00:08→17:03)
[2020-08-14] MEDS ORDERED: PIPERACILLIN/TAZOBACTAM 3.375 GM VIAL IVPB ONE ×4 (02:00→16:55)
[2020-08-14] MEDS ORDERED: DEXTROSE 5%-WATER - 50 ML IVPB ONE ×4 (02:00→16:55)
[2020-08-14] MEDS: INSULIN SLIDING SCALE (NOVOLOG) 1 VIAL SQ SCH ×4 (06:08→22:15)
[2020-08-14 08:30] LABS: BASO % 0.1 % (0-2.0); EOS % 0.3 % (0-4.5); HEMATOCRIT 32.7 % (32.4-45.2); HEMOGLOBIN 10.6 GM/dL (10.7-15.3); LYMPH % 8.4 % (8-40); MCHC 32.4 g/dl (32.0-36.0); MEAN CELL VOLUME 83.2 fl (80-96); MEAN PLT VOLUME 8.3 fl (7.5-11.1); MONO % 3.3 % (3.8-10.2); NEUT % 87.9 % (42.8-82.8); PLATELET COUNT 256 K/MM3 (134-434); RBC 3.92 M/mm3 (3.60-5.2); RDW 15.5 % (11.6-15.6); WHITE BLOOD COUNT 14.1 K/mm3 (4.0-10.0)
[2020-08-14 08:37] LABS: ALBUMIN 2.6 g/dl (3.4-5.0); BLOOD UREA NITROGEN 16.8 mg/dL (7-18); CALCIUM 8.3 mg/dL (8.5-10.1); MAGNESIUM 1.7 mg/dL (1.8-2.4)
[2020-08-14 08:39] LABS: CREATININE 0.8 mg/dL (0.55-1.3)
[2020-08-14 08:40] LABS: BILIRUBIN,TOTAL 0.8 mg/dL (0.2-1); PHOSPHOROUS 3.1 mg/dL (2.5-4.9); TOT PROT 6.2 g/dl (6.4-8.2)
[2020-08-14] MEDS: HEPARIN NA (PORCINE) 5,000 UNITS/ML 1ML VIAL SQ SCH ×2 (09:18→21:37)
[2020-08-14] MEDS: SERTRALINE HCL 25 MG TABLET (FP) PO SCH (09:18)
[2020-08-14] MEDS: morphine SULFATE 4 MG/ML VIAL IVPUSH PRN ×2 (11:51→16:59)
[2020-08-14] MEDS: SODIUM CHLORIDE 1,000 ML IV SCH ×2 (16:22→21:37)
[2020-08-14] MEDS: ZOLPIDEM TARTRATE 5 MG TABLET PO PRN (21:37)
[2020-08-15] MEDS ORDERED: DEXTROSE 5%-WATER - 50 ML IVPB ONE ×4 (00:02→16:59)
[2020-08-15] MEDS ORDERED: PIPERACILLIN/TAZOBACTAM 3.375 GM VIAL IVPB ONE ×4 (00:02→16:59)
[2020-08-15] MEDS: PIPERACILLIN/TAZOB 3.375 GM 3.375 GM in DEXTROSE 5%-WATER - 50 ML IVPB SCH ×4 (00:08→17:32)
[2020-08-15] MEDS: SODIUM CHLORIDE 1,000 ML IV SCH (05:24)
[2020-08-15] MEDS: LEVOTHYROXINE NA 100 MCG TABLET (FP) PO SCH (06:13)
[2020-08-15] MEDS: INSULIN SLIDING SCALE (NOVOLOG) 1 VIAL SQ SCH ×4 (06:21→21:28)
[2020-08-15 08:18] LABS: BASO % 0.1 % (0-2.0); EOS % 1.3 % (0-4.5); HEMATOCRIT 34.6 % (32.4-45.2); HEMOGLOBIN 11.1 GM/dL (10.7-15.3); LYMPH % 5.1 % (8-40); MCH 26.9 pg (25.7-33.7); MCHC 32.2 g/dl (32.0-36.0); MEAN CELL VOLUME 83.7 fl (80-96); MEAN PLT VOLUME 7.9 fl (7.5-11.1); MONO % 4.2 % (3.8-10.2); NEUT % 89.3 % (42.8-82.8); PLATELET COUNT 288 K/MM3 (134-434); RBC 4.13 M/mm3 (3.60-5.2); RDW 15.5 % (11.6-15.6); WHITE BLOOD COUNT 13.3 K/mm3 (4.0-10.0)
[2020-08-15 08:26] LABS: CALCIUM 8.3 mg/dL (8.5-10.1)
[2020-08-15 08:27] LABS: ALBUMIN 2.3 g/dl (3.4-5.0); BLOOD UREA NITROGEN 14.3 mg/dL (7-18); MAGNESIUM 1.7 mg/dL (1.8-2.4)
[2020-08-15 08:30] LABS: CREATININE 0.8 mg/dL (0.55-1.3); PHOSPHOROUS 2.4 mg/dL (2.5-4.9)
[2020-08-15 08:31] LABS: BILIRUBIN,TOTAL 0.7 mg/dL (0.2-1)
[2020-08-15 08:32] LABS: TOT PROT 5.8 g/dl (6.4-8.2)
[2020-08-15] MEDS ORDERED: MAGNESIUM SULF 50% (8.12 MEQ/2 ML-1 GM VIAL) IVPB ONE (09:39)
[2020-08-15] MEDS ORDERED: SODIUM PHOSPHATE - 15 MM in DEXTROSE 5%-WATER - 250 ML IVPB ONE (09:40)
[2020-08-15] MEDS: HEPARIN NA (PORCINE) 5,000 UNITS/ML 1ML VIAL SQ SCH ×2 (10:12→21:30)
[2020-08-15] MEDS: SERTRALINE HCL 25 MG TABLET (FP) PO SCH (10:13)
[2020-08-15] MEDS: KCL 10 MEQ IVPB 10 MEQ/100 ML INFUS.BAG IVPB SCH ×2 (11:14→11:57)
[2020-08-15] MEDS: morphine SULFATE 4 MG/ML VIAL IVPUSH PRN (11:56)
[2020-08-15] MEDS ORDERED: KETOROLAC TROMETHAMINE 15 MG/ML VIAL IM PRN (17:03)
[2020-08-15] MEDS ORDERED: oxyCODONE HCL 5 MG TABLET PO PRN (17:36)
[2020-08-15] MEDS ORDERED: ACETAMINOPHEN 1000 MG/100 ML BAG IVPB PRN (17:37)
[2020-08-16] MEDS ORDERED: PIPERACILLIN/TAZOBACTAM 3.375 GM VIAL IVPB ONE ×4 (00:15→17:48)
[2020-08-16] MEDS ORDERED: DEXTROSE 5%-WATER - 50 ML IVPB ONE ×4 (00:15→17:48)
[2020-08-16] MEDS: PIPERACILLIN/TAZOB 3.375 GM 3.375 GM in DEXTROSE 5%-WATER - 50 ML IVPB SCH ×4 (00:18→18:09)
[2020-08-16] MEDS: SODIUM CHLORIDE 1,000 ML IV SCH ×2 (00:22→18:10)
[2020-08-16] MEDS: INSULIN SLIDING SCALE (NOVOLOG) 1 VIAL SQ SCH ×4 (06:09→21:30)
[2020-08-16] MEDS: LEVOTHYROXINE NA 100 MCG TABLET (FP) PO SCH (06:11)
[2020-08-16 09:05] LABS: BASO % 0.3 % (0-2.0); EOS % 3.2 % (0-4.5); HEMATOCRIT 31.3 % (32.4-45.2); HEMOGLOBIN 10.4 GM/dL (10.7-15.3); LYMPH % 8.8 % (8-40); MCH 27.4 pg (25.7-33.7); MCHC 33.2 g/dl (32.0-36.0); MEAN CELL VOLUME 82.5 fl (80-96); MEAN PLT VOLUME 7.8 fl (7.5-11.1); MONO % 7.1 % (3.8-10.2); NEUT % 80.6 % (42.8-82.8); PLATELET COUNT 306 K/MM3 (134-434); RDW 15.6 % (11.6-15.6); WHITE BLOOD COUNT 9.7 K/mm3 (4.0-10.0)
[2020-08-16 09:30] LABS: CALCIUM 8.2 mg/dL (8.5-10.1)
[2020-08-16 09:31] LABS: ALBUMIN 2.2 g/dl (3.4-5.0); BLOOD UREA NITROGEN 8.8 mg/dL (7-18)
[2020-08-16 09:32] LABS: MAGNESIUM 1.5 mg/dL (1.8-2.4)
[2020-08-16 09:34] LABS: CREATININE 0.7 mg/dL (0.55-1.3); PHOSPHOROUS 3.3 mg/dL (2.5-4.9)
[2020-08-16 09:36] LABS: BILIRUBIN,TOTAL 1.3 mg/dL (0.2-1); TOT PROT 5.8 g/dl (6.4-8.2)
[2020-08-16] MEDS: SERTRALINE HCL 25 MG TABLET (FP) PO SCH (09:45)
[2020-08-16] MEDS: HEPARIN NA (PORCINE) 5,000 UNITS/ML 1ML VIAL SQ SCH ×2 (09:45→21:31)
[2020-08-16] MEDS ORDERED: SODIUM PHOSPHATE - 30 MM in DEXTROSE 5%-WATER - 250 ML IVPB ONE (13:49)
[2020-08-16] MEDS ORDERED: MAGNESIUM SULF 50% (8.12 MEQ/2 ML-1 GM VIAL) IVPB ONE (14:00)
[2020-08-17] MEDS ORDERED: DEXTROSE 5%-WATER - 50 ML IVPB ONE ×5 (00:05→22:24)
[2020-08-17] MEDS ORDERED: PIPERACILLIN/TAZOBACTAM 3.375 GM VIAL IVPB ONE ×5 (00:05→22:23)
[2020-08-17] MEDS: PIPERACILLIN/TAZOB 3.375 GM 3.375 GM in DEXTROSE 5%-WATER - 50 ML IVPB SCH ×5 (00:11→23:40)
[2020-08-17] MEDS: INSULIN SLIDING SCALE (NOVOLOG) 1 VIAL SQ SCH ×4 (06:01→21:27)
[2020-08-17] MEDS: LEVOTHYROXINE NA 100 MCG TABLET (FP) PO SCH (06:01)
[2020-08-17 09:11] LABS: BASO % 0.4 % (0-2.0); EOS % 2.3 % (0-4.5); HEMATOCRIT 32.7 % (32.4-45.2); HEMOGLOBIN 10.6 GM/dL (10.7-15.3); LYMPH % 12.3 % (8-40); MCH 27.1 pg (25.7-33.7); MCHC 32.5 g/dl (32.0-36.0); MEAN CELL VOLUME 83.4 fl (80-96); MEAN PLT VOLUME 7.8 fl (7.5-11.1); MONO % 10.2 % (3.8-10.2); NEUT % 74.8 % (42.8-82.8); PLATELET COUNT 355 K/MM3 (134-434); RBC 3.92 M/mm3 (3.60-5.2); RDW 15.1 % (11.6-15.6); WHITE BLOOD COUNT 7.7 K/mm3 (4.0-10.0)
[2020-08-17] MEDS ORDERED: PT OWN MED DRAWER 7, Y5N ONE (09:22)
[2020-08-17] MEDS: SODIUM CHLORIDE 1,000 ML IV SCH ×3 (09:25→23:40)
[2020-08-17] MEDS: SERTRALINE HCL 25 MG TABLET (FP) PO SCH (09:25)
[2020-08-17] MEDS: HEPARIN NA (PORCINE) 5,000 UNITS/ML 1ML VIAL SQ SCH ×2 (09:26→21:26)
[2020-08-17 09:30] LABS: CALCIUM 8.4 mg/dL (8.5-10.1)
[2020-08-17 09:31] LABS: ALBUMIN 2.3 g/dl (3.4-5.0); BLOOD UREA NITROGEN 9.3 mg/dL (7-18); MAGNESIUM 1.6 mg/dL (1.8-2.4)
[2020-08-17 09:34] LABS: CREATININE 0.7 mg/dL (0.55-1.3); PHOSPHOROUS 3.1 mg/dL (2.5-4.9)
[2020-08-17 09:35] LABS: BILIRUBIN,TOTAL 1.3 mg/dL (0.2-1); TOT PROT 5.9 g/dl (6.4-8.2)
[2020-08-17] MEDS: MELATONIN 5 MG TABLETS PO SCH (21:26)
[2020-08-18] MEDS ORDERED: PIPERACILLIN/TAZOBACTAM 3.375 GM VIAL IVPB ONE ×4 (04:47→23:47)
[2020-08-18] MEDS ORDERED: DEXTROSE 5%-WATER - 50 ML IVPB ONE ×4 (04:47→23:47)
[2020-08-18] MEDS: PIPERACILLIN/TAZOB 3.375 GM 3.375 GM in DEXTROSE 5%-WATER - 50 ML IVPB SCH ×4 (05:11→23:58)
[2020-08-18] MEDS: LEVOTHYROXINE NA 100 MCG TABLET (FP) PO SCH (06:12)
[2020-08-18] MEDS: INSULIN SLIDING SCALE (NOVOLOG) 1 VIAL SQ SCH ×4 (06:13→21:00)
[2020-08-18 07:44] LABS: BASO % 0.4 % (0-2.0); HEMATOCRIT 32.3 % (32.4-45.2); HEMOGLOBIN 10.7 GM/dL (10.7-15.3); LYMPH % 17.9 % (8-40); MCH 27.1 pg (25.7-33.7); MCHC 33.1 g/dl (32.0-36.0); MEAN PLT VOLUME 7.1 fl (7.5-11.1); MONO % 9.4 % (3.8-10.2); NEUT % 68.3 % (42.8-82.8); PLATELET COUNT 378 K/MM3 (134-434); RBC 3.94 M/mm3 (3.60-5.2); RDW 15.2 % (11.6-15.6); WHITE BLOOD COUNT 9.2 K/mm3 (4.0-10.0)
[2020-08-18 08:11] LABS: ALBUMIN 2.4 g/dl (3.4-5.0); BLOOD UREA NITROGEN 5.3 mg/dL (7-18); CALCIUM 8.6 mg/dL (8.5-10.1)
[2020-08-18 08:14] LABS: CREATININE 0.6 mg/dL (0.55-1.3)
[2020-08-18 08:16] LABS: BILIRUBIN,TOTAL 0.5 mg/dL (0.2-1)
[2020-08-18] MEDS: SERTRALINE HCL 25 MG TABLET (FP) PO SCH (09:24)
[2020-08-18] MEDS: HEPARIN NA (PORCINE) 5,000 UNITS/ML 1ML VIAL SQ SCH ×2 (09:24→21:00)
[2020-08-18 11:10] LABS: ANISOCYTOSIS 0; MACROCYTOSIS 0; PLATELET ESTIMATE NORMAL
[2020-08-18] MEDS ORDERED: INSULIN (NOVOLOG) ASPART 100 UNITS/ML 10ML VIAL ONE (11:17)
[2020-08-18] MEDS: MELATONIN 5 MG TABLETS PO SCH (21:00)
[2020-08-19] MEDS ORDERED: PIPERACILLIN/TAZOBACTAM 3.375 GM VIAL IVPB ONE (06:00)
[2020-08-19] MEDS ORDERED: DEXTROSE 5%-WATER - 50 ML IVPB ONE (06:00)
[2020-08-19] MEDS: PIPERACILLIN/TAZOB 3.375 GM 3.375 GM in DEXTROSE 5%-WATER - 50 ML IVPB SCH ×2 (06:04→14:45)
[2020-08-19] MEDS: INSULIN SLIDING SCALE (NOVOLOG) 1 VIAL SQ SCH ×2 (06:09→14:45)
[2020-08-19] MEDS: LEVOTHYROXINE NA 100 MCG TABLET (FP) PO SCH (06:09)
[2020-08-19 08:30] LABS: BASO % 0.4 % (0-2.0); EOS % 4.6 % (0-4.5); HEMATOCRIT 34.7 % (32.4-45.2); HEMOGLOBIN 11.1 GM/dL (10.7-15.3); LYMPH % 18.4 % (8-40); MCH 26.2 pg (25.7-33.7); MCHC 31.9 g/dl (32.0-36.0); MEAN CELL VOLUME 82.1 fl (80-96); MEAN PLT VOLUME 7.5 fl (7.5-11.1); MONO % 8.4 % (3.8-10.2); NEUT % 68.2 % (42.8-82.8); PLATELET COUNT 434 K/MM3 (134-434); RBC 4.22 M/mm3 (3.60-5.2); RDW 15.4 % (11.6-15.6)
[2020-08-19 08:57] LABS: CALCIUM 9.3 mg/dL (8.5-10.1)
[2020-08-19 08:58] LABS: ALBUMIN 2.6 g/dl (3.4-5.0); BLOOD UREA NITROGEN 4.6 mg/dL (7-18); MAGNESIUM 1.3 mg/dL (1.8-2.4)
[2020-08-19 09:01] LABS: PHOSPHOROUS 3.8 mg/dL (2.5-4.9)
[2020-08-19 09:02] LABS: BILIRUBIN,TOTAL 0.6 mg/dL (0.2-1); CREATININE 0.8 mg/dL (0.55-1.3); TOT PROT 6.5 g/dl (6.4-8.2)
[2020-08-19] MEDS: SERTRALINE HCL 25 MG TABLET (FP) PO SCH (09:38)
[2020-08-19] MEDS: HEPARIN NA (PORCINE) 5,000 UNITS/ML 1ML VIAL SQ SCH (09:38)
[2020-08-19] MEDS ORDERED: amLODIPine BESYLATE 5 MG TABLET (FP) PO SCH (10:00)
[2020-08-19 15:00] VITALS: BP 139/58; PULSE 84; TEMP 98.5
== END 2020-08-19 17:42 | disposition home or self-care (01) | DRG 339 ==
LOC: JER 10:20 → JERBED 17:06 → J8W 21:54
PROVIDERS: ADMIT Internal Medicine; ATTEND Internal Medicine
PROC: 0DTJ0ZZ Resection of Appendix, Open Approach (ICD-10-PCS; principal; 2020-08-12)
DX: K35.32 Acute appendicitis with perforation, localized peritonitis, and gangrene, without abscess (principal); E87.2 Acidosis; K91.89 Other postprocedural complications and disorders of digestive system; E11.9 Type 2 diabetes mellitus without complications; K76.0 Fatty (change of) liver, not elsewhere classified; I10 Essential (primary) hypertension; E03.9 Hypothyroidism, unspecified; E78.5 Hyperlipidemia, unspecified; J45.909 Unspecified asthma, uncomplicated; Z87.891 Personal history of nicotine dependence
CPT/HCPCS: 36415; 71045-TC-FY; 74177-TC; 80048; 80053; 82962; 83605; 83690; 83735; 84100; 84443; 84484; 85025; 85610; 85730; 87040; 87070; 87076; 87186; 87205; 88304-TC; 93005; 93010; 94010; 94760; 97116-GP; 97161-GP; 99285-25; C9803; J0131; J1644; U0003

== ENCOUNTER 2024-04-13 10:54 | Observation (INO) | payer OTHER ==
[2024-04-13 12:36] LABS: BASO % 0.6 % (0-2.0); EOS % 1.8 % (0-4.5); HEMATOCRIT 36.3 % (32.4-45.2); LYMPH % 26.9 % (8-40); MCH 26.7 pg (25.7-33.7); MEAN PLT VOLUME 7.6 fl (7.5-11.1); MONO % 5.7 % (3.8-10.2); PLATELET COUNT 287 10^3/uL (134-434); RBC 4.48 M/mm3 (3.60-5.2); RDW 16.1 % (11.6-15.6); WHITE BLOOD COUNT 7.9 K/mm3 (4.0-10.0)
[2024-04-13 12:43] LABS: INR 1.08 (0.83-1.09); PROTHROMBIN TIME (PATIENT) 12.2 SEC (9.7-13.0)
[2024-04-13 12:53] LABS: POTASSIUM 4.5 mmol/L (3.5-5.1)
[2024-04-13 12:55] LABS: BLOOD UREA NITROGEN 28.5 mg/dL (7-18); CALCIUM 9.3 mg/dL (8.5-10.1); MAGNESIUM 1.1 mg/dL (1.8-2.4)
[2024-04-13 12:56] LABS: ALBUMIN 3.5 g/dl (3.4-5.0)
[2024-04-13 12:59] LABS: CREATININE 1.4 mg/dL (0.55-1.3)
[2024-04-13 13:00] LABS: BILIRUBIN,TOTAL 0.3 mg/dL (0.2-1); TOT PROT 7.3 g/dl (6.4-8.2)
[2024-04-13] MEDS: SODIUM CHLORIDE 0.9% 500 ML INFUS.BAG IV ONE (18:36)
[2024-04-13 21:46] LABS: EPI CELLS 7 /uL (0-25.1); HYALINE CASTS 0 /uL (0-3.1); PH,URINE 5.5 (5.0-8.0); URINE APPEARANCE CLEAR; URINE BACTERIA 6 /uL (0-1359); URINE BILIRUBIN NEGATIVE (NEGATIVE); URINE COLOR YELLOW; URINE GLUCOSE (UA) NEGATIVE (NEGATIVE); URINE KETONE NEGATIVE (NEGATIVE); URINE LEUK ESTERASE NEGATIVE (NEGATIVE); URINE NITRITE NEGATIVE (NEGATIVE); URINE PROTEIN 1+ (NEGATIVE); URINE RBC 4 /uL (0-23.9); URINE UROBILINOGEN 0.2 mg/dL (0.2-1.0); URINE WBC 12 /uL (0-25.8)
[2024-04-13] MEDS ORDERED: ACETAMINOPHEN 325 MG TABLET (FP) PO PRN (22:43)
[2024-04-13] MEDS ORDERED: ASPIRIN 325 MG ENTERIC COATED TABLET (FP) ONE (22:57)
[2024-04-13] MEDS ORDERED: INSULIN ASPART SLIDING SCALE (NOVOLOG) 1 VIAL SQ SCH ×2 (23:00)
[2024-04-13] MEDS: ASPIRIN 325 MG ENTERIC COATED TABLET (FP) PO ONE (23:00)
[2024-04-14 03:34] VITALS: BMI 27.3
[2024-04-14] MEDS: LEVOTHYROXINE NA 100 MCG TABLET (FP) PO SCH (06:16)
[2024-04-14 07:51] LABS: HEMATOCRIT 34.6 % (32.4-45.2); HEMOGLOBIN 11.6 GM/dL (10.7-15.3); MCH 26.9 pg (25.7-33.7); MCHC 33.7 g/dl (32.0-36.0); MEAN CELL VOLUME 79.9 fl (80-96); PLATELET COUNT 279 10^3/uL (134-434); RBC 4.33 M/mm3 (3.60-5.2); WHITE BLOOD COUNT 6.8 K/mm3 (4.0-10.0)
[2024-04-14 08:05] LABS: POTASSIUM 4.5 mmol/L (3.5-5.1)
[2024-04-14 08:11] LABS: ALBUMIN 3.3 g/dl (3.4-5.0); BLOOD UREA NITROGEN 20.6 mg/dL (7-18); CALCIUM 9.1 mg/dL (8.5-10.1); MAGNESIUM 1.1 mg/dL (1.8-2.4)
[2024-04-14 08:14] LABS: PHOSPHOROUS 3.5 mg/dL (2.5-4.9)
[2024-04-14 08:15] LABS: BILIRUBIN,TOTAL 0.5 mg/dL (0.2-1); TOT PROT 6.8 g/dl (6.4-8.2)
[2024-04-14] MEDS: MAGNESIUM SULF 50% (8.12 MEQ/2 ML-1 GM VIAL) IVPB ONE ×2 (11:02)
[2024-04-14] MEDS: amLODIPine BESYLATE 5 MG TABLET (FP) PO SCH (11:02)
[2024-04-14] MEDS: ASPIRIN 81 MG CHEWABLE TABLETS PO SCH (11:02)
[2024-04-14] MEDS: ATORVASTATIN CA 20 MG TABLET (FP) PO SCH (21:06)
[2024-04-14] MEDS: MONTELUKAST NA 10 MG TABLET PO SCH (21:06)
[2024-04-14] MEDS: MELATONIN 5 MG TABLETS PO PRN (21:06)
[2024-04-15 07:37] LABS: BASO % 0.6 % (0-2.0); HEMATOCRIT 36.7 % (32.4-45.2); HEMOGLOBIN 12.3 GM/dL (10.7-15.3); LYMPH % 28.1 % (8-40); MCHC 33.5 g/dl (32.0-36.0); MEAN CELL VOLUME 80.6 fl (80-96); MEAN PLT VOLUME 7.9 fl (7.5-11.1); MONO % 6.5 % (3.8-10.2); NEUT % 61.8 % (42.8-82.8); PLATELET COUNT 302 10^3/uL (134-434); POTASSIUM 4.7 mmol/L (3.5-5.1); RBC 4.55 M/mm3 (3.60-5.2); RDW 15.9 % (11.6-15.6); WHITE BLOOD COUNT 8.3 K/mm3 (4.0-10.0)
[2024-04-15 07:46] LABS: ALBUMIN 3.5 g/dl (3.4-5.0); CALCIUM 9.7 mg/dL (8.5-10.1)
[2024-04-15 07:51] LABS: BILIRUBIN,TOTAL 0.7 mg/dL (0.2-1); TOT PROT 7.3 g/dl (6.4-8.2)
[2024-04-15 09:12] VITALS: BP 129/76; PULSE 67; RESP 17; TEMP 98.8
[2024-04-19 10:08] LABS: METHYLMALONIC ACID- 132 nmol/L (0-378)
== END 2024-04-15 13:28 | disposition home or self-care (01) ==
LOC: JER 10:54 → JERBED 18:03 → OBSVTOIN 18:03 → INTOOBSV 18:03 → JERBED 04-14 02:41 → J4S 04-14 02:53
PROVIDERS: ADMIT Internal Medicine; ATTEND Internal Medicine
PROC: 3E033GC Introduction of Other Therapeutic Substance into Peripheral Vein, Percutaneous Approach (ICD-10-PCS; principal; 2024-04-13)
PROC: 3E0337Z Introduction of Electrolytic and Water Balance Substance into Peripheral Vein, Percutaneous Approach (ICD-10-PCS; 2024-04-13)
DX: R42 Dizziness and giddiness (principal); N17.9 Acute kidney failure, unspecified; D64.9 Anemia, unspecified; E03.9 Hypothyroidism, unspecified; J45.909 Unspecified asthma, uncomplicated; E78.00 Pure hypercholesterolemia, unspecified; E11.9 Type 2 diabetes mellitus without complications; I10 Essential (primary) hypertension; Z87.891 Personal history of nicotine dependence
CPT/HCPCS: 36415; 70450-TC; 70551-TC; 71045-TC-FY; 80053; 80061; 81003; 82607; 82962; 83036; 83735; 83880; 83921; 84100; 84443; 84484; 85025; 85027; 85610; 86850; 86900; 86901; 87086; 93005; 93010; 93880-TC; 96374; 97116-GP; 97161-GP; 99285-25; G0378